=== PATIENT | female | born 1965 | race Caucasian/White ===

== ENCOUNTER 2017-01-19 21:20 | Emergency (ER) | payer BC ==
[2017-01-19] MEDS ORDERED: Albuterol/Ipratropium 3.0-0.5 MG/3 ML Neb Soln NEB ONE (21:24)
[2017-01-19] MEDS ORDERED: Sodium Chloride 0.9% 2.5 ML Syringe FLUSH PRN (21:24)
[2017-01-19] MEDS ORDERED: Aspirin 81 MG Tab.Chew PO ONE (21:24)
[2017-01-19] MEDS ORDERED: Sodium Chloride 0.9% 10 ML Syringe FLUSH PRN (21:24)
--- NOTE | 2017-01-19 21:28 | EDM.PDOC ---
ED HPI GENERAL MEDICAL PROBLEM - General Stated Complaint: PT HAS CHEST PAINS Time Seen by Provider: 01/19/17 21:22 - History of Present Illness INITIAL COMMENTS - FREE TEXT/NARRATIVE: HISTORY AND PHYSICAL: History of present illness: The patient is a 51-year-old female with hypertension eag-pzefvoe-eieyhvhgy diabetes long-standing history of tobacco use and a history of pneumonia, walking pneumonia, 2 years ago who follows with Dr. Story in our clinic and presents with 2-3 days of cough congestion nasal drainage and malaise which became worse last evening into today with shortness of breath. Patient states she has a nebulizer machine at home from her pneumonia 2 years ago and she gave herself a treatment and it did not seem to improve things. She has had nasal drainage when blowing her nose and feels like she's plugged up when she coughs it's mostly dry without any phlegm. The patient says she is more short of breath when she lies down and tries to go to sleep hence it was worse last evening and tonight. She only has chest discomfort occasionally and is more sensitive with her breathing and has not been consistent over the last several days or last 24 hours. She has no cardiac history that she is aware of it is never been diagnosed with COPD due to her smoking. She has no leg pain swelling and has not had any fevers. Patient denies alcohol and drug use to me Review of systems: As per history of present illness and below otherwise all systems reviewed and negative. Past medical history: As per history of present illness and as reviewed below otherwise noncontributory. Surgical history: As per history of present illness and as reviewed below otherwise noncontributory. Social history: No reported history of drug or alcohol abuse. Family history: As per history of present illness and as reviewed below otherwise noncontributory. Physical exam: General: Well-developed well-nourished female who is nontoxic and speaking clearly and easily in the ED without breathlessness. Vital signs have been reviewed by me. Patient has nasal quality to voice HEENT: Atraumatic, normocephalic, pupils reactive, negative for conjunctival pallor or scleral icterus, mucous membranes tacky, throat clear, neck supple, nontender, trachea midline. Lungs: Clear to auscultation with coarse breath sounds bilaterally and slightly diminished breath sounds in the bases right greater than left but no wheezing or stridor, no work of breathing,, breath sounds equal bilaterally, chest nontender. Heart: S1S2, regular rate and rhythm no overt murmurs. Abdomen: Soft, nondistended, nontender. Negative for masses or hepatosplenomegaly. Negative for costovertebral tenderness. Pelvis: Stable nontender. Genitourinary: Deferred. Rectal: Deferred. Extremities: Atraumatic, negative for cords or calf pain. Neurovascular unremarkable. No pedal edema or leg asymmetry Neuro: Awake, alert, oriented. Cranial nerves II through XII unremarkable. Cerebellum unremarkable. Motor and sensory unremarkable throughout. Exam nonfocal. Skin: Normal turgor no diaphoresis or rashes/lesions Diagnostics: EKG chest x-ray CBC CMP BNP lactic acid troponin influenza swab Therapeutics: IV O2 monitor aspirin duo neb Solu-Medrol Cefdnir Please note that the patient has a sinus rhythm with rate of 95 and a right bundle branch block on her EKG, when a research the computer I could not find any old EKGs for comparison I discussed with the patient and at bedside all testing results. We are going to treat her symptomatically with antibiotics for both bronchitis and sinusitis and I recommended that she use her nebulizer machine at home every 6 hours for the next several days along with prednisone treatment. I've advised her to follow-up with Dr. Story on Sunday or Sunday and reasons to return to the ED. She says that she would like a new nebulizer machine but she will speak with her provider about that. Advised her on reduction and/or quitting tobacco use and reduction of caffeine use. Impression: Bronchitis/sinusitis, dyspnea stable Definitive disposition and diagnosis as appropriate pending reevaluation and review of above. 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: Endocrine/Metabolic History: Reports: Diabetes, Type I Dermatologic History: Reports: Cellulitis - Infectious Disease History Infectious Disease History: Reports: Chicken Pox - Past Surgical History GI Surgical History: Reports: Cholecystectomy, Hernia Repair/Other, Other (See Below) Musculoskeletal Surgical History: Reports: Other (See Below) Social & Family History - Family History Cardiac: Reports: [place] Neurological: Reports: CVA Endocrine/Metabolic: Reports: Diabetes, Type I, Diabetes, type II - Tobacco Use Smoking Status *Q: Current Every Day Smoker Years of Tobacco use: 30 Packs/Tins Daily: 1 Used Tobacco, but Quit: No Second Hand Smoke Exposure: Yes - Alcohol Use Days Per Week of Alcohol Use: 0 - Recreational Drug Use Recreational Drug Use: No ED ROS GENERAL - Review of Systems Review Of Systems: ROS reveals no pertinent complaints other than HPI. ED EXAM, GENERAL - Physical Exam Exam: See Below (See dictation) Course - Vital Signs Last Recorded V/S: Last Vital Signs Temp 36.1 C 01/19/17 21:25 Pulse 88 01/19/17 23:12 Resp 18 01/19/17 23:12 BP 169/89 H 01/19/17 23:12 Pulse Ox 97 01/19/17 23:12 - Orders/Labs/Meds Orders: Active Orders 24 hr Category Date Time Status Cardiac Monitoring [RC] . DIRECTED Care 01/19/17 21:23 Active EKG Documentation Completion [RC] STAT Care 01/19/17 21:23 Active Oxygen Therapy, ED [RC] ASDIRECTED Care 01/19/17 21:23 Active Pulse Oximetry [RC] ASDIRECTED Care 01/19/17 21:23 Active RT Aerosol Therapy [RC] ASDIRECTED Care 01/19/17 21:24 Active Chest 2V [CR] Stat Exams 01/19/17 21:24 Taken Sodium Chloride 0.9% [Normal Saline] 500 ml Med 01/19/17 22:15 Active IV STAT Sodium Chloride 0.9% [Saline Flush] Med 01/19/17 21:24 Active 10 ml FLUSH ASDIRECTED PRN Sodium Chloride 0.9% [Saline Flush] Med 01/19/17 21:24 Active 2.5 ml FLUSH ASDIRECTED PRN Saline Lock Insert [OM.PC] Stat Oth 01/19/17 21:23 Ordered Medication Orders Sodium Chloride (Normal Saline) 500 mls @ 999 mls/hr IV STAT TREASURE Last Admin: 01/19/17 22:30 Dose: 999 mls/hr Sodium Chloride (Saline Flush) 10 ml FLUSH ASDIRECTED PRN PRN Reason: Keep Vein Open Last Admin: 01/19/17 22:33 Dose: 10 ml Sodium Chloride (Saline Flush) 2.5 ml FLUSH ASDIRECTED PRN PRN Reason: Keep Vein Open Last Admin: 01/19/17 22:33 Dose: 2.5 ml Labs: Laboratory Tests 01/19/17 01/19/17 01/19/17 Range/Units 21:32 21:32 21:32 WBC 9.50 (4.0-11.0) K/uL RBC 4.74 (4.30-5.90) M/uL Hgb 13.3 (12.0-16.0) g/dL Hct 39.4 (36.0-46.0) % MCV 83.1 (80.0-98.0) fL MCH 28.1 (27.0-32.0) pg MCHC 33.8 (31.0-37.0) g/dL RDW Std Deviation 45.0 (28.0-62.0) fl RDW Coeff of Becky 15 (11.0-15.0) % Plt Count 236 (150-400) K/uL MPV 10.80 (7.40-12.00) fL Neut % (Auto) 69.0 (48.0-80.0) % Lymph % (Auto) 24.9 (16.0-40.0) % [place] % (Auto) 4.7 (0.0-15.0) % Eos % (Auto) 1.2 (0.0-7.0) % Baso % (Auto) 0.2 (0.0-1.5) % Neut # (Auto) 6.6 H (1.4-5.7) K/uL Lymph # (Auto) 2.4 (0.6-2.4) K/uL [place] # (Auto) 0.5 (0.0-0.8) K/uL Eos # (Auto) 0.1 (0.0-0.7) K/uL Baso # (Auto) 0.0 (0.0-0.1) K/uL Nucleated RBC % 0.0 /100WBC Nucleated RBCs # 0 K/uL Lactate 1.8 (0.20-2.00) mmol/L Sodium 141 (136-146) mmol/L Potassium 3.7 (3.5-5.1) mmol/L Chloride 106 (98-110) mmol/L Carbon Dioxide 21 (21-31) mmol/L BUN 8 (6.0-23.0) mg/dL Creatinine 0.8 (0.6-1.5) mg/dL Est Cr Clr Drug Dosing 67.27 mL/min Estimated GFR (MDRD) > 60.0 ml/min Glucose 201 H (60-110) mg/dL Calcium 9.6 (8.8-10.8) mg/dL Total Bilirubin 0.3 (0.1-1.5) mg/dL AST 15 (5-40) IU/L ALT 23 (8-54) IU/L Alkaline Phosphatase 131 (40-150) Troponin I (0.0-0.29) NG/ML B-Natriuretic Peptide (<100) PG/ML Total Protein 7.4 (6.0-8.0) g/dL Albumin 3.9 (3.5-5.0) g/dL Globulin 3.5 (2.0-3.5) g/dL Albumin/Globulin Ratio 1.1 L (1.3-2.8) 01/19/17 01/19/17 Range/Units 21:32 21:32 WBC (4.0-11.0) K/uL RBC (4.30-5.90) M/uL Hgb (12.0-16.0) g/dL Hct (36.0-46.0) % MCV (80.0-98.0) fL MCH (27.0-32.0) pg MCHC (31.0-37.0) g/dL RDW Std Deviation (28.0-62.0) fl RDW Coeff of Becky (11.0-15.0) % Plt Count (150-400) K/uL MPV (7.40-12.00) fL Neut % (Auto) (48.0-80.0) % Lymph % (Auto) (16.0-40.0) % [place] % (Auto) (0.0-15.0) % Eos % (Auto) (0.0-7.0) % Baso % (Auto) (0.0-1.5) % Neut # (Auto) (1.4-5.7) K/uL Lymph # (Auto) (0.6-2.4) K/uL [place] # (Auto) (0.0-0.8) K/uL Eos # (Auto) (0.0-0.7) K/uL Baso # (Auto) (0.0-0.1) K/uL Nucleated RBC % /100WBC Nucleated RBCs # K/uL Lactate (0.20-2.00) mmol/L Sodium (136-146) mmol/L Potassium (3.5-5.1) mmol/L Chloride (98-110) mmol/L Carbon Dioxide (21-31) mmol/L BUN (6.0-23.0) mg/dL Creatinine (0.6-1.5) mg/dL Est Cr Clr Drug Dosing mL/min Estimated GFR (MDRD) ml/min Glucose (60-110) mg/dL Calcium (8.8-10.8) mg/dL Total Bilirubin (0.1-1.5) mg/dL AST (5-40) IU/L ALT (8-54) IU/L Alkaline Phosphatase (40-150) Troponin I < 0.10 (0.0-0.29) NG/ML B-Natriuretic Peptide 22 (<100) PG/ML Total Protein (6.0-8.0) g/dL Albumin (3.5-5.0) g/dL Globulin (2.0-3.5) g/dL Albumin/Globulin Ratio (1.3-2.8) Meds: Medications Generic Name Dose Route Start Last Admin Trade Name Freq PRN Reason Stop Dose Admin Sodium Chloride 500 mls @ 999 mls/hr 01/19/17 22:15 01/19/17 22:30 Normal Saline IV 999 mls/hr STAT TREASURE Administration Sodium Chloride 10 ml 01/19/17 21:24 01/19/17 22:33 Saline Flush FLUSH 10 ml ASDIRECTED PRN Administration Keep Vein Open Sodium Chloride 2.5 ml 01/19/17 21:24 01/19/17 22:33 Saline Flush FLUSH 2.5 ml ASDIRECTED PRN Administration Keep Vein Open Discontinued Medications Generic Name Dose Route Start Last Admin Trade Name Freq PRN Reason Stop Dose Admin Albuterol/Ipratropium 3 ml 01/19/17 21:24 01/19/17 21:34 Duoneb 3.0-0.5 Mg/3 Ml NEB 01/19/17 21:25 3 ml ONETIME ONE Administration Aspirin 324 mg 01/19/17 21:24 01/19/17 21:50 Aspirin PO 01/19/17 21:25 324 mg ONETIME ONE Administration Cefdinir 300 mg 01/19/17 23:37 Omnicef PO 01/19/17 23:38 ONETIME ONE Methylprednisolone Sodium Succinate 125 mg 01/19/17 21:52 01/19/17 22:34 Solu-Medrol IVPUSH 01/19/17 21:53 125 mg ONETIME ONE Administration Departure - Departure Time of Disposition: 23:40 Disposition: Home, Self-Care 01 Condition: Good Clinical Impression: Bronchitis Sinusitis Qualifiers: Sinusitis location: unspecified location Chronicity: acute Recurrence: not specified as recurrent Qualified Code(s): J01.90 - Acute sinusitis, unspecified Dyspnea Qualifiers: Dyspnea type: unspecified Qualified Code(s): R06.00 - Dyspnea, unspecified - Discharge Information Referrals: PCP,None [Primary Care Provider] - Additional Instructions: The following information is given to patients seen in the emergency department who are being discharged to home. This information is to outline your options for follow-up care. We provide all patients seen in our emergency department with a follow-up referral. The need for follow-up, as well as the timing and circumstances, are variable depending upon the specifics of your emergency department visit. If you don't have a primary care physician on staff, we will provide you with a referral. We always advise you to contact your personal physician following an emergency department visit to inform them of the circumstance of the visit and for follow-up with them and/or the need for any referrals to a consulting specialist. The emergency department will also refer you to a specialist when appropriate. This referral assures that you have the opportunity for followup care with a specialist. All of these measure are taken in an effort to provide you with optimal care, which includes your followup. Under all circumstances we always encourage you to contact your private physician who remains a resource for coordinating your care. When calling for followup care, please make the office aware that this follow-up is from your recent emergency room visit. If for any reason you are refused follow-up, please contact the [facility] emergency department at and ask to speak to the emergency department charge nurse. [facility] Primary care- Internal Medicine and Family [address] [address] Please use her nebulizer every 6 hours for the next 2 days and then every 6 hours as needed. Feel the prescriptions given to you today for antibiotics and prednisone and start them tomorrow. These try to reduce and/or quit smoking and also reduce caffeine use. Please contact her provider for follow-up on Sunday or Sunday of next week and return to ER as needed and as discussed - My Orders Last 24 Hours: My Active Orders 01/19/17 21:23 Cardiac Monitoring [RC] . DIRECTED EKG Documentation Completion [RC] STAT Oxygen Therapy, ED [RC] ASDIRECTED Pulse Oximetry [RC] ASDIRECTED Saline Lock Insert [OM.PC] Stat 01/19/17 21:24 RT Aerosol Therapy [RC] ASDIRECTED Chest 2V [CR] Stat Sodium Chloride 0.9% [Saline Flush] 10 ml FLUSH ASDIRECTED PRN Sodium Chloride 0.9% [Saline Flush] 2.5 ml FLUSH ASDIRECTED PRN 01/19/17 22:15 Sodium Chloride 0.9% [Normal Saline] 500 ml IV STAT - Assessment/Plan Last 24 Hours: My Active Orders 01/19/17 21:23 Cardiac Monitoring [RC] . DIRECTED EKG Documentation Completion [RC] STAT Oxygen Therapy, ED [RC] ASDIRECTED Pulse Oximetry [RC] ASDIRECTED Saline Lock Insert [OM.PC] Stat 01/19/17 21:24 RT Aerosol Therapy [RC] ASDIRECTED Chest 2V [CR] Stat Sodium Chloride 0.9% [Saline Flush] 10 ml FLUSH ASDIRECTED PRN Sodium Chloride 0.9% [Saline Flush] 2.5 ml FLUSH ASDIRECTED PRN 01/19/17 22:15 Sodium Chloride 0.9% [Normal Saline] 500 ml IV STAT
[2017-01-19] MEDS ORDERED: methylPREDNISolone Sodium Succinate 125 MG/2 ML SDV IVPUSH ONE (21:52)
[2017-01-19 22:05] LABS: CHLORIDE,CL 106 mmol/L (98-110); SODIUM,NA 141 mmol/L (136-146)
[2017-01-19] MEDS ORDERED: Sodium Chloride 0.9% 500 ML IV SCH (22:15)
[2017-01-19] MEDS ORDERED: Cefdinir 300 MG Cap PO ONE (23:37)
[2017-01-20 00:13] VITALS: BP 149/83
--- NOTE | 2017-01-22 10:17 | CR ---
EXAM DATE: 01/19/17 PATIENT'S AGE: 51 Patient: JOSY TEE Facility: [place], [place] Site . Site : [id number] Study: XRay Chest [id number]/13/2017 10:19:28 PM Ordering Physician: Doctor Briggs Final Report: INDICATION: chest tightness TECHNIQUE: Chest 2 views COMPARISON: March 28, 2016 FINDINGS: Cardiovascular and mediastinum: Heart size and vasculature are normal in caliber and appearance. Mediastinum is within normal limits. Lungs and pleural spaces: No focally consolidation. No sign of pleural effusion. No pneumothorax. Bones and soft tissues: No significant findings. IMPRESSION: No acute cardiopulmonary disease. Dictated by Benjamin Orozco MD @ 01/19/2017 10:55:52 PM Dictated by: Benjamin Orozco MD @ 01/19/2017 22:56:05 (Electronic Signature) Report Signed by Proxy. MTDSol
== END 2017-01-20 00:16 | disposition home or self-care (01) ==
LOC: MW.ED 21:20
DX: J40 Bronchitis, not specified as acute or chronic (principal); J01.90 Acute sinusitis, unspecified; E10.9 Type 1 diabetes mellitus without complications; F17.210 Nicotine dependence, cigarettes, uncomplicated; Z79.82 Long term (current) use of aspirin; Z79.899 Other long term (current) drug therapy; Z91.040 Latex allergy status; Z90.49 Acquired absence of other specified parts of digestive tract; Z98.890 Other specified postprocedural states; Z87.01 Personal history of pneumonia (recurrent)
CPT/HCPCS: 36415; 71020; 80053; 83605; 83880; 84484; 85025; 87804; 93005; 94640; 96361; 96374; 99285; A9270; J2930; J7040; 99283

== ENCOUNTER 2017-07-04 23:24 | Observation (INO) | payer BC ==
[2017-07-05 00:33] LABS: CHLORIDE,CL 100 mmol/L (98-107); SODIUM,NA 137 mmol/L (136-145)
--- NOTE | 2017-07-05 01:07 | EDM.PDOC ---
ED HPI GENERAL MEDICAL PROBLEM - General Chief Complaint: Upper Extremity Injury/Pain Stated Complaint: LT ARM NUMBNESS Time Seen by Provider: 07/05/17 01:02 - History of Present Illness INITIAL COMMENTS - FREE TEXT/NARRATIVE: HISTORY AND PHYSICAL: History of present illness: Patient is 52-year-old white female presents with a concern of left-sided chest pain and left arm numbness started just prior to arrival she denies shortness of breath palpitations nausea vomiting fever chills patient does have history of diabetes she is smoker and does have history of hypertension. Review of systems: As per history of present illness and below otherwise all systems reviewed and negative. Past medical history: As per history of present illness and as reviewed below otherwise noncontributory. Surgical history: As per history of present illness and as reviewed below otherwise noncontributory. Social history: No reported history of drug or alcohol abuse. Family history: As per history of present illness and as reviewed below otherwise noncontributory. Physical exam: HEENT: Atraumatic, normocephalic, pupils reactive, negative for conjunctival pallor or scleral icterus, mucous membranes moist, throat clear, neck supple, nontender, trachea midline. Lungs: Clear to auscultation, breath sounds equal bilaterally, chest nontender. Heart: S1S2, regular, negative for clicks, rubs, or JVD. Abdomen: Soft, nondistended, nontender. Negative for masses or hepatosplenomegaly. Negative for costovertebral tenderness. Pelvis: Stable nontender. Genitourinary: Deferred. Rectal: Deferred. Extremities: Atraumatic, negative for cords or calf pain. Neurovascular unremarkable. Neuro: Awake, alert, oriented. Cranial nerves II through XII unremarkable. Cerebellum unremarkable. Motor and sensory unremarkable throughout. Exam nonfocal. Diagnostics: CBC CMP troponin PT/INR chest x-ray EKG CT brain Therapeutics: IV O2 monitor aspirin 324 mg by mouth Impression: #1 chest pain #2 paresthesia #3 history diabetes #4 history of hypertension efinitive disposition and diagnosis as appropriate pending reevaluation and review of above. left arm Pain Score (Numeric/FACES): 7 - Related Data Allergies Allergy/AdvReac Type Severity Reaction Status Date / Time latex Allergy Unknown Rash Verified 07/04/17 23:29 Home Meds: Home Meds metFORMIN [Glucophage XR] 1 gm PO BID 11/05/13 [History] glipiZIDE [Glucotrol XL] 10 mg PO BID 10/23/15 [History] Aspirin 81 mg PO DAILY 01/19/17 [History] Losartan [Cozaar] 1 tab PO DAILY 01/19/17 [History] Omeprazole Magnesium [Prilosec Otc] 20 mg PO DAILY 01/19/17 [History] atorvaSTATin [Lipitor] 40 mg PO DAILY 01/19/17 [History] Past Medical History HEENT History: Reports: None Cardiovascular History: Reports: High Cholesterol, Hypertension Respiratory History: Reports: None Gastrointestinal History: Reports: None Genitourinary History: Reports: None 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 History: Reports: None Neurological History: Reports: None Psychiatric History: Reports: None Endocrine/Metabolic History: Reports: Diabetes, Type II Hematologic History: Reports: None Oncologic (Cancer) History: Reports: None Dermatologic History: Reports: Cellulitis - Infectious Disease History Infectious Disease History: Reports: Chicken Pox - Past Surgical History GI Surgical History: Reports: Cholecystectomy, Hernia Repair/Other, Other (See Below) Female Surgical History: Reports: Hysterectomy Musculoskeletal Surgical History: Reports: Other (See Below) Social & Family History - Family History Family Medical History: Noncontributory Cardiac: Reports: [place] Neurological: Reports: CVA Endocrine/Metabolic: Reports: Diabetes, Type I, Diabetes, type II - Tobacco Use Smoking Status *Q: Current Every Day Smoker Years of Tobacco use: 38 Packs/Tins Daily: 1 Used Tobacco, but Quit: No Second Hand Smoke Exposure: Yes - Caffeine Use Caffeine Use: Reports: Soda, Tea - Alcohol Use Days Per Week of Alcohol Use: 0 - Recreational Drug Use Recreational Drug Use: No Review of Systems - Review of Systems Review Of Systems: ROS reveals no pertinent complaints other than HPI. ED EXAM, GENERAL - Physical Exam Exam: See Below (See dictation) Course - Vital Signs Text/Narrative:: I discussed with patient transfer in light of her symptoms and risk factors patient discussed with family and opted for admission for observation here she understands risks benefits. Last Recorded V/S: Last Vital Signs Temp 36.6 C 07/04/17 23:30 Pulse 109 H 07/05/17 00:00 Resp 16 07/05/17 00:00 BP 167/81 H 07/05/17 00:00 Pulse Ox 94 L 07/05/17 00:00 - Orders/Labs/Meds Orders: Active Orders 24 hr Category Date Time Status EKG 12 Lead [EKG Documentation Completion] [RC] STAT Care 07/04/17 23:54 Active Chest 1V Frontal [CR] Stat Exams 07/04/17 23:32 Taken Head wo Cont [CT] Stat Exams 07/04/17 23:32 Taken Labs: Laboratory Tests 07/04/17 07/04/17 Range/Units 23:40 23:40 WBC 12.35 H (4.0-11.0) K/uL RBC 4.65 (4.30-5.90) M/uL Hgb 12.3 (12.0-16.0) g/dL Hct 37.0 (36.0-46.0) % MCV 79.6 L (80.0-98.0) fL MCH 26.5 L (27.0-32.0) pg MCHC 33.2 (31.0-37.0) g/dL RDW Std Deviation 44.1 (28.0-62.0) fl RDW Coeff of Becky 15 (11.0-15.0) % Plt Count 253 (150-400) K/uL MPV 10.80 (7.40-12.00) fL Neut % (Auto) 76.0 (48.0-80.0) % Lymph % (Auto) 17.3 (16.0-40.0) % [place] % (Auto) 4.8 (0.0-15.0) % Eos % (Auto) 1.8 (0.0-7.0) % Baso % (Auto) 0.1 (0.0-1.5) % Neut # (Auto) 9.4 H (1.4-5.7) K/uL Lymph # (Auto) 2.1 (0.6-2.4) K/uL [place] # (Auto) 0.6 (0.0-0.8) K/uL Eos # (Auto) 0.2 (0.0-0.7) K/uL Baso # (Auto) 0.0 (0.0-0.1) K/uL Nucleated RBC % 0.0 /100WBC Nucleated RBCs # 0 K/uL Sodium 137 (136-145) mmol/L Potassium 3.5 (3.5-5.1) mmol/L Chloride 100 (98-107) mmol/L Carbon Dioxide 28.3 (21.0-32.0) mmol/L BUN 9 (7.0-18.0) mg/dL Creatinine 1.0 (0.6-1.0) mg/dL Est Cr Clr Drug Dosing 53.82 mL/min Estimated GFR (MDRD) 58.0 ml/min Glucose 256 H (74-106) mg/dL Calcium 9.7 (8.5-10.1) mg/dL Total Bilirubin 0.4 (0.2-1.0) mg/dL AST 14 L (15-37) IU/L ALT 15 (14-63) IU/L Alkaline Phosphatase 117 H (46-116) U/L CK-MB (CK-2) 0.6 (0-3.6) ng/mL Troponin I < 0.050 (0.000-0.056) ng/mL Total Protein 7.7 (6.4-8.2) g/dL Albumin 3.4 (3.4-5.0) g/dL Globulin 4.3 H (2.0-3.5) g/dL Albumin/Globulin Ratio 0.8 L (1.3-2.8) Meds: Medications Discontinued Medications Generic Name Dose Route Start Last Admin Trade Name Freq PRN Reason Stop Dose Admin Aspirin 324 mg 07/05/17 01:10 Aspirin PO 07/05/17 01:11 ONETIME ONE Nitroglycerin 1 gm 07/05/17 01:10 Nitro-Bid 2% TOP 07/05/17 01:11 ONETIME ONE Departure - Departure Time of Disposition: 01:07 Disposition: Refer to Observation Condition: Good Clinical Impression: Chest pain, Paresthesia - Discharge Information Referrals: PCP,None [Primary Care Provider] - Forms: ED Department Discharge - My Orders Last 24 Hours: My Active Orders 07/04/17 23:32 Chest 1V Frontal [CR] Stat Head wo Cont [CT] Stat 07/04/17 23:54 EKG 12 Lead [EKG Documentation Completion] [RC] STAT - Assessment/Plan Last 24 Hours: My Active Orders 07/04/17 23:32 Chest 1V Frontal [CR] Stat Head wo Cont [CT] Stat 03/28/18 23:54 EKG 12 Lead [EKG Documentation Completion] [RC] STAT
[2017-07-05] MEDS ORDERED: Aspirin 81 MG Tab.Chew PO ONE (01:10)
[2017-07-05] MEDS ORDERED: Nitroglycerin 2% Oint 1 GM UD Packet TOP ONE (01:10)
[2017-07-05] MEDS ORDERED: Morphine 4 MG/ML Syringe SUBCUT PRN (02:43)
[2017-07-05] MEDS ORDERED: Acetaminophen 325 MG Tab PO PRN (02:45)
--- NOTE | 2017-07-05 09:06 | PCM.HP ---
H&P History of Present Illness - General Date of Service: 07/05/17 Admit Problem/Dx: Admission Diagnosis/Problem Admission Diagnosis/Problem Chest pain Source of Information: Patient - History of Present Illness Initial Comments - Free Text/Narative: Discharge Summary Date of admission: 07/04/2018 Date of discharge: 06/06/2017 Admitting diagnosis: #1. Left-sided chest pain acute coronary syndrome rule out #2. Numbness of left arm #3. #4. #5. Discharge diagnoses: #1. Chest pain now resolved ACS ruled out, troponins negative 3 #2. Possible underlying respiratory issue, patient placed on Advair and albuterol #3. #4. #5. Consultations: None Procedures: None Hospitalization course: Patient was admitted overnight secondary to acute chest pain rule out, troponins were negative 3 chest pain had resolved numbness of left arm had resolved. Patient did have some wheezing on auscultation that the patient says was not present prior to having a viral infection a few days earlier, patient says that she does have albuterol and has not been using it as much prior to this admission. Due to the increasing use of the albuterol the decision was made to send the patient home on Advair as this may help in regards to the patient's respiratory inflammation. Patient is to have pulmonary function testing once symptoms have improved, patient is to have a cardiac stress test and an outpatient setting. History of present illness: Patient presents to the ER with left-sided chest pain with left arm numbness, she denied having any shortness of breath, denied having any nausea, vomiting, signs of fevers or chills that would indicate possibly an infectious process. Due to the history of diabetes and possible risk factors the decision was made to admit the patient for acute coronary syndrome rule out. left arm Pain Score (Numeric/FACES): 7 Left Chest Pain Score (Numeric/FACES): 2 - Related Data Allergies/Adverse Reactions: Allergies Allergy/AdvReac Type Severity Reaction Status Date / Time latex Allergy Unknown Rash Verified 07/04/17 23:29 Home Medications: Home Meds metFORMIN [Glucophage XR] 1,000 mg PO BID 11/05/13 [History] glipiZIDE [Glucotrol XL] 10 mg PO BID 10/23/15 [History] Aspirin 81 mg PO BEDTIME 01/19/17 [History] Losartan [Cozaar] 1 tab PO BEDTIME 01/19/17 [History] Omeprazole Magnesium [Prilosec Otc] 20 mg PO DAILY 01/19/17 [History] atorvaSTATin [Lipitor] 40 mg PO BEDTIME 01/19/17 [History] Albuterol [Proair HFA] 2 puff INH Q4HR PRN 30 Days #1 inhaler 07/05/17 [Rx] Fluticasone/Salmeterol [Advair 250-50] 1 puff INH BID 30 Days #1 diskus [Rx] Past Medical History HEENT History: Reports: None Cardiovascular History: Reports: High Cholesterol, Hypertension Respiratory History: Reports: None Gastrointestinal History: Reports: None Genitourinary History: Reports: None 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: Musculoskeletal History: Reports: None Neurological History: Reports: None Psychiatric History: Reports: None Endocrine/Metabolic History: Reports: Diabetes, Type II Hematologic History: Reports: None Oncologic (Cancer) History: Reports: None Dermatologic History: Reports: Cellulitis - Infectious Disease History Infectious Disease History: Reports: Chicken Pox - Past Surgical History GI Surgical History: Reports: Cholecystectomy, Hernia Repair/Other Female Surgical History: Reports: Hysterectomy Musculoskeletal Surgical History: Reports: Other (See Below) Social & Family History - Family History Family Medical History: Noncontributory Cardiac: Reports: [place] Neurological: Reports: CVA Endocrine/Metabolic: Reports: Diabetes, Type I, Diabetes, type II - Tobacco Use Smoking Status *Q: Current Every Day Smoker Years of Tobacco use: 35 Packs/Tins Daily: 1 Used Tobacco, but Quit: No Second Hand Smoke Exposure: No - Caffeine Use Caffeine Use: Reports: Tea - Alcohol Use Days Per Week of Alcohol Use: 0 - Recreational Drug Use Recreational Drug Use: No H&P Review of Systems - Review of Systems: Review Of Systems: ROS reveals no pertinent complaints other than HPI. Exam - Exam Exam: See Below - Vital Signs Vital Signs: Last Vital Signs Temp 36.3 C 07/05/17 08:00 Pulse 89 07/05/17 08:00 Resp 20 07/05/17 08:00 BP 138/65 07/05/17 08:00 Pulse Ox 91 L 07/05/17 08:00 Weight: 83.9 kg - Exam Quality Assessment: Supplemental Oxygen General: Alert, Oriented, Cooperative Lungs: Normal Respiratory Effort, Wheezing Cardiovascular: Regular Rate, Regular Rhythm GI/Abdominal Exam: Normal Bowel Sounds, Soft Extremities: Normal Inspection, Normal Range of Motion - Patient Data Lab Results Last 24 hrs: Laboratory Results - last 24 hr 07/04/17 07/04/17 07/05/17 Range/Units 23:40 23:40 05:25 WBC 12.35 H (4.0-11.0) K/uL RBC 4.65 (4.30-5.90) M/uL Hgb 12.3 (12.0-16.0) g/dL Hct 37.0 (36.0-46.0) % MCV 79.6 L (80.0-98.0) fL MCH 26.5 L (27.0-32.0) pg MCHC 33.2 (31.0-37.0) g/dL RDW Std Deviation 44.1 (28.0-62.0) fl RDW Coeff of Becky 15 (11.0-15.0) % Plt Count 253 (150-400) K/uL MPV 10.80 (7.40-12.00) fL Neut % (Auto) 76.0 (48.0-80.0) % Lymph % (Auto) 17.3 (16.0-40.0) % [place] % (Auto) 4.8 (0.0-15.0) % Eos % (Auto) 1.8 (0.0-7.0) % Baso % (Auto) 0.1 (0.0-1.5) % Neut # (Auto) 9.4 H (1.4-5.7) K/uL Lymph # (Auto) 2.1 (0.6-2.4) K/uL [place] # (Auto) 0.6 (0.0-0.8) K/uL Eos # (Auto) 0.2 (0.0-0.7) K/uL Baso # (Auto) 0.0 (0.0-0.1) K/uL Nucleated RBC % 0.0 /100WBC Nucleated RBCs # 0 K/uL Sodium 137 (136-145) mmol/L Potassium 3.5 (3.5-5.1) mmol/L Chloride 100 (98-107) mmol/L Carbon Dioxide 28.3 (21.0-32.0) mmol/L BUN 9 (7.0-18.0) mg/dL Creatinine 1.0 (0.6-1.0) mg/dL Est Cr Clr Drug Dosing 53.82 mL/min Estimated GFR (MDRD) 58.0 ml/min Glucose 256 H (74-106) mg/dL Calcium 9.7 (8.5-10.1) mg/dL Total Bilirubin 0.4 (0.2-1.0) mg/dL AST 14 L (15-37) IU/L ALT 15 (14-63) IU/L Alkaline Phosphatase 117 H (46-116) U/L CK-MB (CK-2) 0.6 (0-3.6) ng/mL Troponin I < 0.050 < 0.050 (0.000-0.056) ng/mL Total Protein 7.7 (6.4-8.2) g/dL Albumin 3.4 (3.4-5.0) g/dL Globulin 4.3 H (2.0-3.5) g/dL Albumin/Globulin Ratio 0.8 L (1.3-2.8) Result Diagrams: 07/04/17 23:40 07/04/17 23:40 Problem List Initiated/Reviewed/Updated: Yes Orders Last 24hrs: Active Orders 24 hr Category Date Time Status Patient Status [ADT] Stat ADT 07/05/17 01:20 Active EKG 12 Lead [EKG Documentation Completion] [RC] STAT Care 07/04/17 23:54 Active Telemetry Monitoring [Cardiac Monitoring] [RC] Q8H Care 07/05/17 03:42 Active Heart Healthy Diet [DIET] Diet 07/05/17 Lunch Active Chest 1V Frontal [CR] Stat Exams 07/04/17 23:32 Taken Head wo Cont [CT] Stat Exams 07/04/17 23:32 Taken TROPONIN I [CHEM] Routine Lab 07/05/17 11:40 Ordered Acetaminophen [Tylenol] Med 07/05/17 02:45 Active 650 mg PO Q4H PRN Morphine Med 07/05/17 02:43 Active 2 mg SUBCUT Q6H PRN Medication Orders Acetaminophen (Tylenol) 650 mg PO Q4H PRN PRN Reason: Headache Morphine Sulfate (Morphine) 2 mg SUBCUT Q6H PRN PRN Reason: Pain Assessment/Plan Comment:: 52-year-old female presenting with acute chest pain and numbness in the ER requiring acute coronary syndrome rule out. Troponin 3, cardiac monitoring, CBC CMP in the a.m. if all negative patient shall be discharged with outpatient cardiac stress test. Anticipated length of stay less than 2 midnights.
[2017-07-05] MEDS ORDERED: Albuterol/Ipratropium 3.0-0.5 MG/3 ML Neb Soln NEB ONE (09:34)
--- NOTE | 2017-07-05 09:49 | CR ---
EXAM DATE: 07/05/17 PATIENT'S AGE: 51 Patient: JOSY TEE Facility: Home, [place] Site . Site : 1965 Study: XRay Chest [id number]/28/[id number] 11:55:41 PM Ordering Physician: Doctor Briggs Final Report: INDICATION: Left-sided numbness. Smoking history. TECHNIQUE: Chest 1 views COMPARISON: January 19, 2017 FINDINGS: Cardiovascular and mediastinum: Heart size and vasculature are normal in caliber and appearance. Lungs and pleural spaces: Lungs are clear. No sign of infiltrate or mass. No sign of pleural effusion. No pneumothorax. Bones and soft tissues: No significant findings. IMPRESSION: No acute findings and no significant changes from the prior exam. Dictated by Familia Guzman MD @ Jul 05 2017 12:04AM (Electronic Signature) Report Signed by Proxy. BETSY
--- NOTE | 2017-07-05 09:50 | CT ---
EXAM DATE: 07/05/17 PATIENT'S AGE: 51 Patient: JOSY TEE Facility: [place], [place] Site . Site : 1965 Study: CT Head [id number]/28/[id number] 11:57:08 PM Ordering Physician: Doctor Briggs Final Report: INDICATION: Left-sided numbness. TECHNIQUE: Standard noncontrast head CT performed. FINDINGS: There is no intracranial hemorrhage or fluid collection. The king-white matter differentiation is maintained. The ventricles are of normal morphology. The basal cisterns are clear. Calcified plaque is noted around both carotid siphons. The visualized orbits, sinuses and mastoids are unremarkable. The calvarium is intact. IMPRESSION: No acute intracranial abnormality. Please note that all CT scans at this facility use dose modulation, iterative reconstruction, and/or weight-based dosing when appropriate to reduce radiation dose to as low as reasonably achievable. Dictated by Robbi Mcmahon MD @ Jul 05 2017 12:00AM (Electronic Signature) Report Signed by Proxy. MTDD
[2017-07-05] MEDS ORDERED: Albuterol/Ipratropium 3.0-0.5 MG/3 ML Neb Soln NEB SCH (10:00)
[2017-07-05] MEDS ORDERED: Fluticasone/Salmeterol 250-50 MCG Inhalation Powder 14/Diskus INH SCH (10:15)
[2017-07-05 12:07] VITALS: BP 151/64
== END 2017-07-05 14:30 | disposition home or self-care (01) ==
LOC: MW.ED 23:24 → MW.MS 07-05 01:20
PROVIDERS: ADMIT Family Medicine; ATTEND Family Medicine
DX: R07.9 Chest pain, unspecified (principal); E78.00 Pure hypercholesterolemia, unspecified; I10 Essential (primary) hypertension; E11.9 Type 2 diabetes mellitus without complications; F17.210 Nicotine dependence, cigarettes, uncomplicated; Z91.040 Latex allergy status; Z79.84 Long term (current) use of oral hypoglycemic drugs; Z79.82 Long term (current) use of aspirin; Z79.899 Other long term (current) drug therapy; Z90.49 Acquired absence of other specified parts of digestive tract; Z90.710 Acquired absence of both cervix and uterus
CPT/HCPCS: 36415; 70450; 71045; 80053; 82553; 83036; 84484; 85025; 93005; 94640; 94664; 99284; A9270; 99283; G0378

== ENCOUNTER 2018-09-08 19:56 | Emergency (ER) | payer BC ==
[2018-09-08] MEDS ORDERED: Ondansetron 4 MG Tab.DIS PO ONE (19:58)
--- NOTE | 2018-09-08 20:05 | EDM.PDOC ---
ED HPI GENERAL MEDICAL PROBLEM - General Stated Complaint: LOWER BACK PAIN/NAUSEA Time Seen by Provider: 09/08/18 19:58 Source of Information: Reports: Patient History Limitations: Reports: No Limitations - History of Present Illness INITIAL COMMENTS - FREE TEXT/NARRATIVE: HISTORY AND PHYSICAL: History of present illness: Patient is a 53-year-old female who presents to the emergency room today with complaints of low back pain 4 days. She states this has progressively gotten worse over the past several days and she does note that her urine is dark orange /pink in color. She denies any injury, trauma or falls. Believes the discomfort is related to a urinary tract infection. She reports she does have narcotic pain medication at home and this has not helped alleviate her discomfort. Patient does have a history of type 2 diabetes and hypertension. Review of systems: As per history of present illness and below otherwise all systems reviewed and negative. Past medical history: As per history of present illness and as reviewed below otherwise noncontributory. Surgical history: As per history of present illness and as reviewed below otherwise noncontributory. Social history: See social history for further information Family history: As per history of present illness and as reviewed below otherwise noncontributory. Physical exam: General: Well-developed and well-nourished 53-year-old female. Alert and oriented. Nontoxic appearing and in no acute distress. HEENT: Atraumatic, normocephalic, pupils equal and reactive bilaterally, negative for conjunctival pallor or scleral icterus, mucous membranes moist, trachea midline. No drooling or trismus noted. No meningeal signs. No hot potato voice noted. Lungs: Clear to auscultation, breath sounds equal bilaterally, chest nontender. Heart: S1S2, regular rate and rhythm without overt murmur Abdomen: Soft, nondistended, nontender. Negative for masses. Negative for costovertebral tenderness. Pelvis: Stable nontender. Skin: Intact, warm, dry. No lesions or rashes noted. Extremities: Atraumatic, moves all extremities per self without difficulty or deficits, negative for cords or calf pain. Neurovascular unremarkable. Back: No pinpoint vertebral tenderness upon palpation. No crepitus, step-offs or obvious deformities. Patient is ambulatory without any difficulty or deficits. Denies any numbness, tingling or saddle paresthesia. Neuro: Awake, alert, oriented. Cranial nerves II through XII unremarkable. Cerebellum unremarkable. Motor and sensory unremarkable throughout. Exam nonfocal. Notes: The initial urinalysis is negative. Patient would like to move forward with lab work and imaging. She is concerned she has a kidney stone. She refuses an x-ray at this time. Stating that she did not have any injury trauma or falls. Lab work is unremarkable. CT shows no acute findings. Vital signs remain stable. Supportive care measures were reviewed and discussed. Voices understanding and is agreeable to plan of care. Denies any further questions or concerns at this time. Diagnostics: UA, CBC, CMP, CT abdomen and pelvis Therapeutics: Zofran Prescription: Flexeril (#20) Impression: Lumbar back pain Plan: 1. Please do not drive for the remainder of the day as the medications he received to cause drowsiness. 2. Tylenol and/or ibuprofen as needed for pain management. 3. Follow-up with your primary care provider as we discussed. Return to the ED as needed and as discussed. Definitive disposition and diagnosis as appropriate pending reevaluation and review of above. Back Pain Score (Numeric/FACES): 9 - Related Data Allergies Allergy/AdvReac Type Severity Reaction Status Date / Time latex Allergy Unknown Rash Verified 09/08/18 20:05 Home Meds: Home Meds metFORMIN [Glucophage XR] 1,000 mg PO BID 11/05/13 [History] glipiZIDE [Glucotrol XL] 10 mg PO BID 10/23/15 [History] Aspirin 81 mg PO BEDTIME 01/19/17 [History] Losartan [Cozaar] 1 tab PO BEDTIME 01/19/17 [History] Omeprazole Magnesium [Prilosec Otc] 20 mg PO DAILY 01/19/17 [History] atorvaSTATin [Lipitor] 40 mg PO BEDTIME 01/19/17 [History] Albuterol [Proair HFA] 2 puff INH Q4HR PRN 30 Days #1 inhaler 07/05/17 [Rx] Fluticasone/Salmeterol [Advair 250-50] 1 puff INH BID 30 Days #1 diskus [Rx] Empagliflozin [Jardiance] 10 mg PO DAILY 09/08/18 [History] Past Medical History HEENT History: Reports: None Cardiovascular History: Reports: High Cholesterol, Hypertension Respiratory History: Reports: None Gastrointestinal History: Reports: None Genitourinary History: Reports: None 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: Musculoskeletal History: Reports: None Neurological History: Reports: None Psychiatric History: Reports: None Endocrine/Metabolic History: Reports: Diabetes, Type II Hematologic History: Reports: None Oncologic (Cancer) History: Reports: None Dermatologic History: Reports: Cellulitis - Infectious Disease History Infectious Disease History: Reports: Chicken Pox - Past Surgical History GI Surgical History: Reports: Cholecystectomy, Hernia Repair/Other Female Surgical History: Reports: Hysterectomy Musculoskeletal Surgical History: Reports: Other (See Below) Social & Family History - Family History Family Medical History: Noncontributory Cardiac: Reports: [place] Neurological: Reports: CVA Endocrine/Metabolic: Reports: Diabetes, Type I, Diabetes, type II - Caffeine Use Caffeine Use: Reports: Tea ED ROS GENERAL - Review of Systems Review Of Systems: ROS reveals no pertinent complaints other than HPI. ED EXAM, GENERAL - Physical Exam Exam: See Below (See dictation) Course - Vital Signs Last Recorded V/S: Last Vital Signs Temp 97.5 F 09/08/18 20:06 Pulse 106 H 09/08/18 20:06 Resp 20 09/08/18 20:06 BP 152/80 H 09/08/18 20:06 Pulse Ox 92 L 09/08/18 20:06 - Orders/Labs/Meds Labs: Laboratory Tests 09/08/18 09/08/18 09/08/18 Range/Units 20:05 20:50 20:50 WBC 11.11 H (4.0-11.0) K/uL RBC 5.03 (4.30-5.90) M/uL Hgb 12.2 (12.0-16.0) g/dL Hct 39.0 (36.0-46.0) % MCV 77.5 L (80.0-98.0) fL MCH 24.3 L (27.0-32.0) pg MCHC 31.3 (31.0-37.0) g/dL RDW Std Deviation 45.2 (28.0-62.0) fl RDW Coeff of Becky 16 H (11.0-15.0) % Plt Count 266 (150-400) K/uL MPV 11.40 (7.40-12.00) fL Neut % (Auto) 68.4 (48.0-80.0) % Lymph % (Auto) 24.4 (16.0-40.0) % [place] % (Auto) 5.6 (0.0-15.0) % Eos % (Auto) 1.5 (0.0-7.0) % Baso % (Auto) 0.1 (0.0-1.5) % Neut # (Auto) 7.6 H (1.4-5.7) K/uL Lymph # (Auto) 2.7 H (0.6-2.4) K/uL [place] # (Auto) 0.6 (0.0-0.8) K/uL Eos # (Auto) 0.2 (0.0-0.7) K/uL Baso # (Auto) 0.0 (0.0-0.1) K/uL Nucleated RBC % 0.0 /100WBC Nucleated RBCs # 0 K/uL Sodium 140 (136-145) mmol/L Potassium 3.6 (3.5-5.1) mmol/L Chloride 104 (98-107) mmol/L Carbon Dioxide 28.7 (21.0-32.0) mmol/L BUN 10 (7.0-18.0) mg/dL Creatinine 0.9 (0.6-1.0) mg/dL Est Cr Clr Drug Dosing 58.42 mL/min Estimated GFR (MDRD) > 60.0 ml/min Glucose 241 H (74-106) mg/dL Calcium 9.6 (8.5-10.1) mg/dL Total Bilirubin 0.3 (0.2-1.0) mg/dL AST 16 (15-37) IU/L ALT 24 (14-63) IU/L Alkaline Phosphatase 106 (46-116) U/L Total Protein 7.4 (6.4-8.2) g/dL Albumin 3.6 (3.4-5.0) g/dL Globulin 3.8 (2.6-4.0) g/dL Albumin/Globulin Ratio 0.9 (0.9-1.6) Urine Color YELLOW Urine Appearance CLEAR Urine pH 5.5 (5.0-8.0) Ur Specific [place] <= 1.005 (1.001-1.035) Urine Protein NEGATIVE (NEGATIVE) mg/dL Urine Glucose (UA) 100 H (NEGATIVE) mg/dL Urine Ketones NEGATIVE (NEGATIVE) mg/dL Urine Occult Blood NEGATIVE (NEGATIVE) Urine Nitrite NEGATIVE (NEGATIVE) Urine Bilirubin NEGATIVE (NEGATIVE) Urine Urobilinogen 0.2 (<2.0) EU/dL Ur Leukocyte Esterase NEGATIVE (NEGATIVE) Meds: Medications Discontinued Medications Generic Name Dose Route Start Last Admin Trade Name Freq PRN Reason Stop Dose Admin Hydromorphone HCl 1 mg 09/08/18 20:41 09/08/18 20:53 Dilaudid IVPUSH 09/08/18 20:42 1 mg ONETIME ONE Administration Sodium Chloride 1,000 mls @ 999 mls/hr 09/08/18 20:42 09/08/18 20:58 Normal Saline IV 09/08/18 21:42 999 mls/hr STAT ONE Administration Ondansetron HCl 4 mg 09/08/18 19:58 09/08/18 20:11 Zofran Odt PO 09/08/18 19:59 4 mg ONETIME ONE Administration Departure - Departure Time of Disposition: 21:42 Disposition: Home, Self-Care 01 Clinical Impression: Lumbar back pain - Discharge Information Instructions: Acute Back Pain, Adult Referrals: Karthikeyan Cullen MD [Primary Care Provider] - Additional Instructions: The following information is given to patients seen in the emergency department who are being discharged to home. This information is to outline your options for follow-up care. We provide all patients seen in our emergency department with a follow-up referral. The need for follow-up, as well as the timing and circumstances, are variable depending upon the specifics of your emergency department visit. If you don't have a primary care physician on staff, we will provide you with a referral. We always advise you to contact your personal physician following an emergency department visit to inform them of the circumstance of the visit and for follow-up with them and/or the need for any referrals to a consulting specialist. The emergency department will also refer you to a specialist when appropriate. This referral assures that you have the opportunity for follow-up care with a specialist. All of these measure are taken in an effort to provide you with optimal care, which includes your follow-up. Under all circumstances we always encourage you to contact your private physician who remains a resource for coordinating your care. When calling for follow-up care, please make the office aware that this follow-up is from your recent emergency room visit. If for any reason you are refused follow-up, please contact the [facility] at and asked to speak to the emergency department charge nurse. [facility] [address] [place] [address] [facility] [address] [place] [id number] [address] for the remainder of the day as the medications he received to cause drowsiness. 2. Tylenol and/or ibuprofen as needed for pain management. Apply gentle heat and stretching to the area. 3. Follow-up with your primary care provider as we discussed. Return to the ED as needed and as discussed.
[2018-09-08] MEDS ORDERED: HYDROmorphone 1 MG/ML Syringe IVPUSH ONE (20:41)
[2018-09-08] MEDS ORDERED: Sodium Chloride 0.9% 1,000 ML IV ONE (20:42)
[2018-09-08 21:21] LABS: CHLORIDE,CL 104 mmol/L (98-107); SODIUM,NA 140 mmol/L (136-145)
--- NOTE | 2018-09-08 21:40 | CT ---
INDICATION: Abdominal pain radiating to the back TECHNIQUE: CT abdomen and pelvis without contrast. COMPARISON: January 07, 2018 FINDINGS: Lower chest: Faint opacity in the left lower lobe. Liver: Calcifications along the right lateral hepatic capsule. There is pneumobilia. Spleen: Unremarkable. Pancreas: Unremarkable. Gallbladder and bile ducts: S/p cholecystectomy. Adrenal glands: 2.5 x 1.3 cm left adrenal gland nodule is measures 23 Hounsfield units in density. 1.0 cm x 6 mm right adrenal gland nodule. 4 mm right adrenal gland myelolipoma. Kidneys: Unremarkable. No kidney or ureteral stones and no hydronephrosis. GI tract: Unremarkable. Appendix is normal. Vascular structures: Moderate atherosclerotic disease. Lymph nodes: Unremarkable. Miscellaneous: Status post ventral herniorrhaphy with mesh placement. There are a few fat containing ventral hernias cephalad to the ventral herniorrhaphy. No free air or significant free fluid. Pelvic Organs: Status post hysterectomy. Bones: Unremarkable for age. IMPRESSION: No etiology seen to explain symptoms. Faint opacity in the left lower lobe may represent atelectasis or infection. Status post cholecystectomy with stable pneumobilia. Bilateral indeterminate adrenal gland nodules. Consider adrenal CT for further characterization. There is also a right adrenal gland myelolipoma. Status post hysterectomy. Please note that all CT scans at this facility use dose modulation, iterative reconstruction, and/or weight-based dosing when appropriate to reduce radiation dose to as low as reasonably achievable. Dictated by Janae Salazar MD @ Sep 08 2018 9:28PM Signed by Dr. Janae Salazar @ Sep 08 2018 9:38PM
[2018-09-08 22:07] VITALS: BP 157/74
== END 2018-09-08 21:55 | disposition home or self-care (01) ==
LOC: MW.ED 19:56
DX: M54.5 Low back pain (principal); I10 Essential (primary) hypertension; E11.9 Type 2 diabetes mellitus without complications; Z91.040 Latex allergy status; Z79.82 Long term (current) use of aspirin; Z79.84 Long term (current) use of oral hypoglycemic drugs; Z79.899 Other long term (current) drug therapy; Z90.49 Acquired absence of other specified parts of digestive tract; Z90.710 Acquired absence of both cervix and uterus
CPT/HCPCS: 36415; 74176; 80053; 81003; 85025; 96361; 96374; 99284; A9270; J1170; J7040

== ENCOUNTER 2020-01-04 18:02 | Emergency (ER) | payer BC, OTHER ==
--- NOTE | 2020-01-04 18:14 | EDM.PDOC ---
ED HPI GENERAL MEDICAL PROBLEM - General Chief Complaint: Respiratory Problem Stated Complaint: CHEST CONGESTION Time Seen by Provider: 01/04/20 18:06 Source of Information: Reports: Patient History Limitations: Reports: No Limitations - History of Present Illness INITIAL COMMENTS - FREE TEXT/NARRATIVE: HISTORY AND PHYSICAL: History of present illness: Patient is a 54-year-old female who presents to the emergency room with complaints of chest pain, shortness of breath, sore throat and diarrhea over the past 3 days. Patient is concerned she may have pneumonia as she has had this in the past. Chest pain is midsternal and constant. Nothing makes the pain better or worse. The pain is not radiating. She has no diaphoresis associated with this. Dry nonproductive cough. She is a smoker although states this cough is worse than her "smoker's cough". Complaining of generalized throat pain although is not having any difficulty with speech, swallowing, eating/drinking. Denies any abdominal pain, nausea, vomiting but has had loose stools. Patient denies any fever, chills, headache, change in vision, syncope or near syncope. Review of systems: As per history of present illness and below otherwise all systems reviewed and negative. Past medical history: As per history of present illness and as reviewed below otherwise noncontributory. Surgical history: As per history of present illness and as reviewed below otherwise noncontributory. Social history: See social history for further information Family history: As per history of present illness and as reviewed below otherwise noncontributory. Physical exam: General: Well developed and well nourished. Alert and orientated x 3. Nontoxic in appearance and in no acute distress. Vital signs are stable and have been reviewed by me. Nursing notes were reviewed. HEENT: Atraumatic, normocephalic, pupils equal and reactive bilaterally, negative for conjunctival pallor or scleral icterus, mucous membranes moist, TMs normal bilaterally, throat clear, neck supple, nontender, trachea midline. No drooling or trismus noted. No meningeal signs. No hot potato voice noted. Lungs: Slightly diminished throughout to auscultation, breath sounds equal bilaterally, chest nontender. Normal work of breathing, no accessory muscles used. Dry nonproductive cough noted. Heart: S1S2, regular rate and rhythm without overt murmur Abdomen: Soft, nondistended, nontender. Negative for masses or hepatosplenomegaly. Negative for costovertebral tenderness. Skin: Intact, warm, dry. No lesions or rashes noted. Hematologic: No petechiae or purpra. Mucosa appropriate color and normal nail bed color and refill. Extremities: Atraumatic, moves all extremities per self without difficulty or deficits, negative for cords or calf pain. Neurovascular unremarkable. Neuro: Awake, alert, oriented. Cranial nerves II through XII unremarkable. Cerebellum unremarkable. Motor and sensory unremarkable throughout. Exam nonfocal. Psychiatric: Mood and affect are appropriate. Normal thought process. Answering questions appropriately. Notes: Chest x-ray shows nothing acute. EKG shows a sinus rhythm with a right bundle branch block. It is noted in 2018 she also had a right bundle branch block. Has a history of SVT with ablation, has not had any problems since. Negative troponin. Patient's COVID screening is negative, although I am suspicious that she is positive. We do send out a swab to the state lab. I have spoken with the patient/caregiver and discussed today's findings, in addition to providing specific details for plan of care. Reassessment at the time of disposition demonstrates that the patient is in no acute distress. The patient has remained stable throughout the entire ED visit and is without objective evidence for acute process requiring urgent intervention or hospitalization. The patient is stable for discharge, counseling was provided and we discussed in great detail signs and symptoms that would prompt them to return to the Emergency Department. She does have a nebulizer machine at home, will give her some DuoNebs to use as needed. We will also treat her as an acute bronchitis with azithromycin and prednisone due to her smoking history. Medication, follow up and supportive care measures were reviewed and discussed. Voices understanding and is agreeable to plan of care. Denies any further questions or concerns at this time. Diagnostics: CBC, CMP, troponin, EKG, chest x-ray, COVID, lactate Therapeutics: Azithromycin, prednisone Prescription: Azithromycin, prednisone, DuoNeb (#15) Impression: Acute bronchitis Plan: 1. Even though your rapid COVID-19 screening is negative, I am suspicious that you have the COVID-19 virus. If you continue to feel unwell please stay home. COVID-19 testing is not 100% accurate, a state swab will be sent to lab for further analysis. 2. You can take NyQuil during the evening to help get a restful night sleep. 3. You may alternate Tylenol and ibuprofen as needed for pain and fever management. 4. The [facility] Hotline phone number , They are open Sunday - Sunday 7am - 7pm. 5. Follow up with your primary care provider for re-evaluation and if your symptoms should worsen, new symptoms develop or you feel like you are not improving you are always welcome to return to the emergency room. Definitive disposition and diagnosis as appropriate pending reevaluation and review of above. chest Pain Score (Numeric/FACES): 6 - Related Data Allergies Allergy/AdvReac Type Severity Reaction Status Date / Time latex Allergy Unknown Rash Verified 01/04/20 18:18 Home Meds: Home Meds metFORMIN [Glucophage XR] 1,000 mg PO BID 11/05/13 [History] glipiZIDE [Glucotrol XL] 10 mg PO BID 10/23/15 [History] Aspirin 81 mg PO BEDTIME 01/19/17 [History] Losartan [Cozaar] 1 tab PO BEDTIME 01/19/17 [History] Omeprazole Magnesium [Prilosec Otc] 20 mg PO DAILY 01/19/17 [History] atorvaSTATin [Lipitor] 40 mg PO BEDTIME 01/19/17 [History] Albuterol [Proair HFA] 2 puff INH Q4HR PRN 30 Days #1 inhaler 07/05/17 [Rx] Fluticasone/Salmeterol [Advair 250-50] 1 puff INH BID 30 Days #1 diskus 07/05/17 [Rx] Empagliflozin [Jardiance] 10 mg PO DAILY 09/08/18 [History] Albuterol/Ipratropium [DuoNeb 3.0-0.5 MG/3 ML] 1 ampule INH Q4HR PRN #15 neb 01/04/20 [Rx] Azithromycin [Zithromax] 1 dose PO DAILY 4 Days #4 tab 01/04/20 [Rx] predniSONE [Prednisone] 40 mg PO DAILY 3 Days #6 tablet 01/04/20 [Rx] Past Medical History HEENT History: Reports: None Cardiovascular History: Reports: High Cholesterol, Hypertension Respiratory History: Reports: None Gastrointestinal History: Reports: None Genitourinary History: Reports: None [employer] History: Reports: Musculoskeletal History: Reports: None Neurological History: Reports: None Psychiatric History: Reports: None Endocrine/Metabolic History: Reports: Diabetes, Type II Hematologic History: Reports: None Oncologic (Cancer) History: Reports: None Dermatologic History: Reports: Cellulitis - Infectious Disease History Infectious Disease History: Reports: Chicken Pox - Past Surgical History GI Surgical History: Reports: Cholecystectomy, Hernia Repair/Other Female Surgical History: Reports: Hysterectomy Musculoskeletal Surgical History: Reports: Other (See Below) Social & Family History - Family History Family Medical History: Noncontributory Cardiac: Reports: HI Neurological: Reports: CVA Endocrine/Metabolic: Reports: Diabetes, Type I, Diabetes, type II - Caffeine Use Caffeine Use: Reports: Tea ED ROS GENERAL - Review of Systems Review Of Systems: Comprehensive ROS is negative, except as noted in HPI. ED EXAM, GENERAL - Physical Exam Exam: See Below (See dictation) Course - Vital Signs Last Recorded V/S: Last Vital Signs Temp 97.2 F 01/04/20 18:09 Pulse 104 H 01/04/20 18:09 Resp 20 01/04/20 18:09 BP 189/79 H 01/04/20 18:09 Pulse Ox 93 L 01/04/20 18:09 - Orders/Labs/Meds Orders: Active Orders 24 hr Category Date Time Status Cardiac Monitoring [RC] . DIRECTED Care 01/04/20 18:30 Active EKG Documentation Completion [RC] STAT Care 01/04/20 18:21 Active CORONAVIRUS COVID-19 PCR PHL Stat Lab 01/04/20 19:00 Received CULTURE URINE [RM] Stat Lab 01/04/20 18:45 Received Sodium Chloride 0.9% [Saline Flush] Med 01/04/20 18:30 Active 10 ml FLUSH ASDIRECTED PRN Sodium Chloride 0.9% [Saline Flush] Med 01/04/20 18:30 Active 2.5 ml FLUSH ASDIRECTED PRN Saline Lock Insert [OM.PC] Stat Oth 01/04/20 18:30 Ordered Medication Orders Sodium Chloride (Saline Flush) 10 ml FLUSH ASDIRECTED PRN PRN Reason: Keep Vein Open Sodium Chloride (Saline Flush) 2.5 ml FLUSH ASDIRECTED PRN PRN Reason: Keep Vein Open Labs: Laboratory Tests 01/04/20 01/04/20 01/04/20 Range/Units 18:45 18:58 18:58 WBC 10.01 (4.0-11.0) K/uL RBC 4.63 (4.30-5.90) M/uL Hgb 10.5 L (12.0-16.0) g/dL Hct 34.4 L (36.0-46.0) % MCV 74.3 L (80.0-98.0) fL MCH 22.7 L (27.0-32.0) pg MCHC 30.5 L (31.0-37.0) g/dL RDW Std Deviation 45.8 (28.0-62.0) fl RDW Coeff of Becky 17 H (11.0-15.0) % Plt Count 310 (150-400) K/uL MPV 10.10 (7.40-12.00) fL Neut % (Auto) 67.4 (48.0-80.0) % Lymph % (Auto) 25.1 (16.0-40.0) % [place] % (Auto) 6.1 (0.0-15.0) % Eos % (Auto) 1.3 (0.0-7.0) % Baso % (Auto) 0.1 (0.0-1.5) % Neut # (Auto) 6.8 H (1.4-5.7) K/uL Lymph # (Auto) 2.5 H (0.6-2.4) K/uL [place] # (Auto) 0.6 (0.0-0.8) K/uL Eos # (Auto) 0.1 (0.0-0.7) K/uL Baso # (Auto) 0.0 (0.0-0.1) K/uL Nucleated RBC % 0.0 /100WBC Nucleated RBCs # 0 K/uL Lactate (0.20-2.00) mmol/L Sodium 139 (136-145) mmol/L Potassium 3.1 L (3.5-5.1) mmol/L Chloride 100 (98-107) mmol/L Carbon Dioxide 27.1 (21.0-32.0) mmol/L BUN 7 (7.0-18.0) mg/dL Creatinine 0.8 (0.6-1.0) mg/dL Est Cr Clr Drug Dosing 64.95 mL/min Estimated GFR (MDRD) > 60.0 ml/min Glucose 161 H (74-106) mg/dL Calcium 9.1 (8.5-10.1) mg/dL Total Bilirubin 0.3 (0.2-1.0) mg/dL AST 12 L (15-37) IU/L ALT 21 (14-63) IU/L Alkaline Phosphatase 119 H (46-116) U/L Troponin I < 0.050 (0.000-0.056) ng/mL Total Protein 7.7 (6.4-8.2) g/dL Albumin 3.6 (3.4-5.0) g/dL Globulin 4.1 H (2.6-4.0) g/dL Albumin/Globulin Ratio 0.9 (0.9-1.6) Urine Color YELLOW Urine Appearance SLT CLOUDY Urine pH 6.0 (5.0-8.0) Ur Specific [place] <= 1.005 (1.001-1.035) Urine Protein NEGATIVE (NEGATIVE) mg/dL Urine Glucose (UA) NEGATIVE (NEGATIVE) mg/dL Urine Ketones NEGATIVE (NEGATIVE) mg/dL Urine Occult Blood NEGATIVE (NEGATIVE) Urine Nitrite NEGATIVE (NEGATIVE) Urine Bilirubin NEGATIVE (NEGATIVE) Urine Urobilinogen 0.2 (<2.0) EU/dL Ur Leukocyte Esterase TRACE H (NEGATIVE) Urine RBC 0-1 (0-2/HPF) Urine WBC 1-3 (0-5/HPF) Ur Epithelial Cells MODERATE (NONE-FEW) Urine Bacteria RARE (NEGATIVE) Urine Yeast FEW SARS CoV-2 RNA Rapid CORNEL (NEGATIVE) 01/04/20 01/04/20 Range/Units 18:58 19:00 WBC (4.0-11.0) K/uL RBC (4.30-5.90) M/uL Hgb (12.0-16.0) g/dL Hct (36.0-46.0) % MCV (80.0-98.0) fL MCH (27.0-32.0) pg MCHC (31.0-37.0) g/dL RDW Std Deviation (28.0-62.0) fl RDW Coeff of Becky (11.0-15.0) % Plt Count (150-400) K/uL MPV (7.40-12.00) fL Neut % (Auto) (48.0-80.0) % Lymph % (Auto) (16.0-40.0) % [place] % (Auto) (0.0-15.0) % Eos % (Auto) (0.0-7.0) % Baso % (Auto) (0.0-1.5) % Neut # (Auto) (1.4-5.7) K/uL Lymph # (Auto) (0.6-2.4) K/uL [place] # (Auto) (0.0-0.8) K/uL Eos # (Auto) (0.0-0.7) K/uL Baso # (Auto) (0.0-0.1) K/uL Nucleated RBC % /100WBC Nucleated RBCs # K/uL Lactate 1.4 (0.20-2.00) mmol/L Sodium (136-145) mmol/L Potassium (3.5-5.1) mmol/L Chloride (98-107) mmol/L Carbon Dioxide (21.0-32.0) mmol/L BUN (7.0-18.0) mg/dL Creatinine (0.6-1.0) mg/dL Est Cr Clr Drug Dosing mL/min Estimated GFR (MDRD) ml/min Glucose (74-106) mg/dL Calcium (8.5-10.1) mg/dL Total Bilirubin (0.2-1.0) mg/dL AST (15-37) IU/L ALT (14-63) IU/L Alkaline Phosphatase (46-116) U/L Troponin I (0.000-0.056) ng/mL Total Protein (6.4-8.2) g/dL Albumin (3.4-5.0) g/dL Globulin (2.6-4.0) g/dL Albumin/Globulin Ratio (0.9-1.6) Urine Color Urine Appearance Urine pH (5.0-8.0) Ur Specific [place] (1.001-1.035) Urine Protein (NEGATIVE) mg/dL Urine Glucose (UA) (NEGATIVE) mg/dL Urine Ketones (NEGATIVE) mg/dL Urine Occult Blood (NEGATIVE) Urine Nitrite (NEGATIVE) Urine Bilirubin (NEGATIVE) Urine Urobilinogen (<2.0) EU/dL Ur Leukocyte Esterase (NEGATIVE) Urine RBC (0-2/HPF) Urine WBC (0-5/HPF) Ur Epithelial Cells (NONE-FEW) Urine Bacteria (NEGATIVE) Urine Yeast SARS CoV-2 RNA Rapid CORNEL NEGATIVE (NEGATIVE) Meds: Medications Generic Name Dose Route Start Last Admin Trade Name Freq PRN Reason Stop Dose Admin Sodium Chloride 10 ml 01/04/20 18:30 Saline Flush FLUSH ASDIRECTED PRN Keep Vein Open Sodium Chloride 2.5 ml 01/04/20 18:30 Saline Flush FLUSH ASDIRECTED PRN Keep Vein Open Discontinued Medications Generic Name Dose Route Start Last Admin Trade Name Freq PRN Reason Stop Dose Admin Azithromycin 500 mg 01/04/20 19:51 Zithromax PO 01/04/20 19:52 NOW STA Prednisone 40 mg 01/04/20 19:52 Prednisone PO 01/04/20 19:53 NOW STA Departure - Departure Time of Disposition: 20:11 Disposition: Home, Self-Care 01 Clinical Impression: Acute bronchitis Qualifiers: Bronchitis organism: unspecified organism Qualified Code(s): J20.9 - Acute bronchitis, unspecified - Discharge Information Prescriptions: Albuterol/Ipratropium [DuoNeb 3.0-0.5 MG/3 ML] 1 ampule INH Q4HR PRN #15 neb PRN Reason: Dyspnea predniSONE [Prednisone] 40 mg PO DAILY 3 Days #6 tablet Azithromycin [Zithromax] 1 dose PO DAILY 4 Days #4 tab Instructions: Acute Bronchitis, Adult, [id number] Referrals: Karthikeyan Cullen MD [Primary Care Provider] - Forms: ED Department Discharge Additional Instructions: The following information is given to patients seen in the emergency department who are being discharged to home. This information is to outline your options for follow-up care. We provide all patients seen in our emergency department with a follow-up referral. The need for follow-up, as well as the timing and circumstances, are variable depending upon the specifics of your emergency department visit. If you don't have a primary care physician on staff, we will provide you with a referral. We always advise you to contact your personal physician following an emergency department visit to inform them of the circumstance of the visit and for follow-up with them and/or the need for any referrals to a consulting specialist. The emergency department will also refer you to a specialist when appropriate. This referral assures that you have the opportunity for follow-up care with a specialist. All of these measure are taken in an effort to provide you with optimal care, which includes your follow-up. Under all circumstances we always encourage you to contact your private physician who remains a resource for coordinating your care. When calling for follow-up care, please make the office aware that this follow-up is from your recent emergency room visit. If for any reason you are refused follow-up, please contact the [facility] Emergency Department at and asked to speak to the emergency department charge nurse. [facility] [address] [place] [id number] [facility] [address] [place] [id number] Thank you for choosing the [facility] emergency department in [place] for your medical needs today. It was a pleasure caring for you. Today you were seen in the emergency department for respiratory symptoms. 1. Even though your rapid COVID-19 screening is negative, I am suspicious that you have the COVID-19 virus. If you continue to feel unwell please stay home. COVID-19 testing is not 100% accurate, a state swab will be sent to lab for further analysis. 2. You can take NyQuil during the evening to help get a restful night sleep. 3. You may alternate Tylenol and ibuprofen as needed for pain and fever management. 4. [facility] Hotline phone number , They are open Sunday - Sunday 7am - 7pm. 5. Follow up with your primary care provider for re-evaluation and if your symptoms should worsen, new symptoms develop or you feel like you are not improving you are always welcome to return to the emergency room. Sepsis Event Note (ED) - Focused Exam Vital Signs: Vital Signs Temp Pulse Resp BP Pulse Ox 01/04/20 18:09 97.2 F 104 H 20 189/79 H 93 L - My Orders Last 24 Hours: My Active Orders 01/04/20 18:21 EKG Documentation Completion [RC] STAT 01/04/20 18:30 Cardiac Monitoring [RC] . DIRECTED Sodium Chloride 0.9% [Saline Flush] 10 ml FLUSH ASDIRECTED PRN Sodium Chloride 0.9% [Saline Flush] 2.5 ml FLUSH ASDIRECTED PRN Saline Lock Insert [OM.PC] Stat 01/04/20 18:45 CULTURE URINE [RM] Stat 01/04/20 19:00 CORONAVIRUS COVID-19 PCR PHL Stat - Assessment/Plan Last 24 Hours: My Active Orders 01/04/20 18:21 EKG Documentation Completion [RC] STAT 01/04/20 18:30 Cardiac Monitoring [RC] . DIRECTED Sodium Chloride 0.9% [Saline Flush] 10 ml FLUSH ASDIRECTED PRN Sodium Chloride 0.9% [Saline Flush] 2.5 ml FLUSH ASDIRECTED PRN Saline Lock Insert [OM.PC] Stat 01/04/20 18:45 CULTURE URINE [RM] Stat 01/04/20 19:00 CORONAVIRUS COVID-19 PCR PHL Stat
[2020-01-04] MEDS ORDERED: Sodium Chloride 0.9% 10 ML Syringe FLUSH PRN (18:30)
[2020-01-04] MEDS ORDERED: Sodium Chloride 0.9% 2.5 ML Syringe FLUSH PRN (18:30)
--- NOTE | 2020-01-04 19:13 | CR ---
Chest: Portable view of the chest was obtained. Comparison: Prior chest x-ray of 07/10/17. Heart size and mediastinum are within normal limits. Lungs are clear with no acute parenchymal change. Bony structures are grossly intact. Impression: 1. Nothing acute is seen on portable chest x-ray. Diagnostic code #1 This report was dictated in MDT
[2020-01-04 19:40] LABS: BLOOD UREA NITROGEN,BUN 7 mg/dL (7.0-18.0); CARBON DIOXIDE,CO2 27.1 mmol/L (21.0-32.0); CHLORIDE,CL 100 mmol/L (98-107); GLUCOSE RANDOM 161 mg/dL (74-106); POTASSIUM,K 3.1 mmol/L (3.5-5.1); SODIUM,NA 139 mmol/L (136-145)
[2020-01-04] MEDS ORDERED: Azithromycin 250 MG Tab PO STA (19:51)
[2020-01-04] MEDS ORDERED: predniSONE 20 MG Tab PO STA (19:52)
[2020-01-04 20:24] VITALS: BP 155/75; PULSE 84
== END 2020-01-04 20:24 | disposition home or self-care (01) ==
LOC: MW.ED 18:02
DX: J20.9 Acute bronchitis, unspecified (principal); E78.00 Pure hypercholesterolemia, unspecified; I10 Essential (primary) hypertension; E11.9 Type 2 diabetes mellitus without complications; Z91.040 Latex allergy status; Z79.82 Long term (current) use of aspirin; Z79.899 Other long term (current) drug therapy; Z20.828 Contact with and (suspected) exposure to other viral communicable diseases
CPT/HCPCS: 36415; 71045; 80053; 81001; 83605; 84484; 85025; 87086; 87635; 99285; A9270; 99284; U0002

== ENCOUNTER 2021-05-24 16:20 | Inpatient (IN) | payer BC ==
[2021-05-24] MEDS ORDERED: Sodium Chloride 0.9% 1,000 ML IV ONE ×2 (16:44→18:14)
[2021-05-24] MEDS ORDERED: Ondansetron 4 MG/2 ML SDV IVPUSH ONE (16:44)
[2021-05-24 18:08] LABS: CARBON DIOXIDE,CO2 27.4 mmol/L (21.0-32.0); POTASSIUM,K 4.3 mmol/L (3.5-5.1)
[2021-05-24 18:13] LABS: CORONAVIRUS COVID-19 NAA NEGATIVE (NEGATIVE); INFLUENZA A NAA NEGATIVE (NEGATIVE); INFLUENZA B NAA NEGATIVE (NEGATIVE)
[2021-05-24] MEDS ORDERED: Piperacillin/Tazobactam 4.5 GM in Sodium Chloride 0.9% 100 ML IV ONE (18:13)
[2021-05-24] MEDS ORDERED: Sodium Chloride 0.9% 500 ML IV SCH (18:15)
[2021-05-24 18:30] LABS: LIPASE 263 U/L (73-393)
[2021-05-24] MEDS ORDERED: HYDROmorphone 1 MG/ML Syringe IVPUSH ONE (19:13)
[2021-05-24] MEDS: HYDROmorphone 1 MG/ML Syringe IVPUSH PRN (23:50)
[2021-05-25] MEDS ORDERED: Glucagon,Human Recombinant 1 MG Vial IM PRN (00:29)
[2021-05-25] MEDS ORDERED: 50% Dextrose in Water 50 ML Syringe IVPUSH PRN (00:29)
[2021-05-25] MEDS ORDERED: Heparin Sodium 5,000 Units/ML Vial SUBCUT SCH (00:30)
[2021-05-25] MEDS: Sodium Chloride 0.9% 1,000 ML IV SCH ×3 (01:12→21:24)
[2021-05-25 02:28] LABS: CARBON DIOXIDE,CO2 26.3 mmol/L (21.0-32.0); POTASSIUM,K 4.1 mmol/L (3.5-5.1)
[2021-05-25] MEDS ORDERED: Piperacillin/Tazobactam 3.375 GM in Sodium Chloride 0.9% 50 ML IV SCH (08:00)
[2021-05-25] MEDS: Insulin Aspart 100 Units/ML 3 ML Pen SUBCUT SCH ×2 (08:21→14:12)
[2021-05-25] MEDS: Heparin Sodium 5,000 Units/ML Vial SUBCUT SCH ×2 (08:24→21:06)
[2021-05-25] MEDS ORDERED: Magnesium Sulfate/Water 2 GM in Premix Bag 1 BAG IV ONE (09:02)
[2021-05-25] MEDS ORDERED: Albuterol 8 GM Inhaler INH PRN (10:35)
[2021-05-25] MEDS: HYDROmorphone 1 MG/ML Syringe IVPUSH PRN ×3 (10:38→21:15)
[2021-05-25] MEDS: Nicotine 14 MG/24 Hr Patch TRDERM SCH (14:16)
[2021-05-25] MEDS: Piperacillin/Tazobactam 4.5 GM in Sodium Chloride 0.9% 100 ML IV SCH ×2 (14:17→21:06)
[2021-05-25] MEDS ORDERED: Azithromycin 500 MG in Sodium Chloride 0.9% 250 ML IV SCH (14:30)
[2021-05-25] MEDS ORDERED: Ondansetron 4 MG/2 ML SDV IVPUSH PRN (14:54)
[2021-05-25] MEDS ORDERED: Acetaminophen 325 MG Tab PO PRN (14:54)
[2021-05-25] MEDS ORDERED: Piperacillin/Tazobactam 4.5 GM in Sodium Chloride 0.9% 100 ML IV SCH (16:00)
[2021-05-25] MEDS: atorvaSTATin 40 MG Tab PO SCH (21:05)
[2021-05-25] MEDS: INSULIN DEGLUDEC 100 UNIT/ML SUBCUT SCH (21:06)
[2021-05-26] MEDS: Piperacillin/Tazobactam 4.5 GM in Sodium Chloride 0.9% 100 ML IV SCH ×3 (05:54→21:37)
[2021-05-26] MEDS: Sodium Chloride 0.9% 1,000 ML IV SCH ×2 (05:55→15:31)
[2021-05-26] MEDS: Insulin Aspart 100 Units/ML 3 ML Pen SUBCUT SCH ×3 (07:20→17:36)
[2021-05-26 08:36] LABS: CARBON DIOXIDE,CO2 26.5 mmol/L (21.0-32.0); POTASSIUM,K 3.7 mmol/L (3.5-5.1)
[2021-05-26] MEDS: Heparin Sodium 5,000 Units/ML Vial SUBCUT SCH ×2 (09:46→21:36)
[2021-05-26] MEDS: Azithromycin 250 MG Tab PO SCH (09:47)
[2021-05-26] MEDS: Nicotine 14 MG/24 Hr Patch TRDERM SCH (09:47)
[2021-05-26] MEDS ORDERED: Polyethylene Glycol 3350 Powder 17 GM Packet PO PRN (10:41)
[2021-05-26] MEDS: HYDROmorphone 1 MG/ML Syringe IVPUSH PRN ×2 (13:59→22:50)
[2021-05-26] MEDS: INSULIN DEGLUDEC 100 UNIT/ML SUBCUT SCH (20:08)
[2021-05-26] MEDS: atorvaSTATin 40 MG Tab PO SCH (21:36)
[2021-05-27] MEDS: Piperacillin/Tazobactam 4.5 GM in Sodium Chloride 0.9% 100 ML IV SCH (05:43)
[2021-05-27 06:20] LABS: POTASSIUM,K 3.6 mmol/L (3.5-5.1)
[2021-05-27] MEDS ORDERED: Magnesium Sulfate/Water 2 GM in Premix Bag 1 BAG IV ONE (07:53)
[2021-05-27] MEDS: Insulin Aspart 100 Units/ML 3 ML Pen SUBCUT SCH ×2 (08:28→14:33)
[2021-05-27] MEDS: Azithromycin 250 MG Tab PO SCH (09:47)
[2021-05-27] MEDS: Heparin Sodium 5,000 Units/ML Vial SUBCUT SCH (09:47)
[2021-05-27] MEDS: Nicotine 14 MG/24 Hr Patch TRDERM SCH (09:47)
[2021-05-27] MEDS ORDERED: Levofloxacin 750 MG Tab PO ONE (11:15)
[2021-05-27 12:15] VITALS: PULSE 69
[2021-05-27 14:31] VITALS: BP 168/83
== END 2021-05-27 13:00 | disposition home or self-care (01) | DRG 720 ==
LOC: MW.ED 16:20 → MW.MS 21:11
PROVIDERS: ADMIT Internal Medicine; ATTEND Internal Medicine
DX: A41.59 Other Gram-negative sepsis (principal); J15.6 Pneumonia due to other Gram-negative bacteria; N17.9 Acute kidney failure, unspecified; R10.12 Left upper quadrant pain; E11.9 Type 2 diabetes mellitus without complications; I10 Essential (primary) hypertension; K74.60 Unspecified cirrhosis of liver; Z79.4 Long term (current) use of insulin; Z91.040 Latex allergy status; Z79.899 Other long term (current) drug therapy; E78.00 Pure hypercholesterolemia, unspecified; Z86.19 Personal history of other infectious and parasitic diseases; Z90.49 Acquired absence of other specified parts of digestive tract; Z98.890 Other specified postprocedural states; Z20.822 Contact with and (suspected) exposure to COVID-19; N12 Tubulo-interstitial nephritis, not specified as acute or chronic
CPT/HCPCS: 0240U; 36415; 71045; 71045-26; 71250; 71250-26; 74176; 74176-26; 80048; 80053; 81001; 81003; 82607; 82947; 83605; 83690; 83735; 84484; 85025; 85610; 86308; 87040; 87077; 87086; 87154; 87186; 87389; 87651-QW; 93010; 93306; 99283; 99285-25; A9270-GY; J0456; J1170; J1644; J1815-GY; J2405; J2543; J3475; J7030; J7040; J7050

== ENCOUNTER 2022-02-22 06:26 | Day surgery (SDC) | payer BC ==
[~2022-02-22 06:26] MED LIST: Lactated Ringers 1,000 ML IV SCH
[2022-02-22] MEDS ORDERED: fentaNYL 100 MCG/2 ML SDV ONE (07:26)
[2022-02-22] MEDS ORDERED: Midazolam 1 MG/ML 2 ML SDV ONE (07:26)
[2022-02-22] MEDS ORDERED: Bupivacaine 0.25% 30 ML SDV ONE (07:28)
[2022-02-22] MEDS ORDERED: Ropivacaine 0.5% 5 MG/ML 30 ML SDV ONE (07:28)
[2022-02-22] MEDS ORDERED: Ondansetron 4 MG/2 ML SDV IVPUSH PRN (07:33)
[2022-02-22] MEDS ORDERED: Morphine 2 MG/ML SYRINGE IVPUSH PRN (07:33)
[2022-02-22] MEDS ORDERED: Albuterol 0.083% 2.5 MG/3 ML Neb Soln NEB PRN (07:33)
[2022-02-22] MEDS ORDERED: Naloxone 0.4 MG/ML SDV IVPUSH PRN (07:33)
[2022-02-22] MEDS ORDERED: HYDROmorphone 1 MG/ML Syringe IVPUSH PRN (07:33)
[2022-02-22] MEDS ORDERED: fentaNYL 50 MCG/ML SDV IVPUSH PRN (07:33)
[2022-02-22] MEDS ORDERED: Metoclopramide 10 MG/2 ML SDV IVPUSH PRN (07:33)
[2022-02-22] MEDS ORDERED: Propofol 200 MG/20 ML SDV ONE (07:56)
[2022-02-22] MEDS ORDERED: ceFAZolin 2 GM Vial ONE (07:59)
[2022-02-22] MEDS ORDERED: Water For Injection, Sterile 20 ML ONE (07:59)
[2022-02-22] MEDS ORDERED: ceFAZolin 2 GM in Premix Bag 1 BAG IV SCH (08:00)
[2022-02-22] MEDS ORDERED: Lidocaine 2% 11 ML Jelly Filled Syringe ONE (08:26)
[2022-02-22 09:53] VITALS: BP 141/62; PULSE 64
== END 2022-02-22 09:45 | disposition home or self-care (01) ==
LOC: MW.SDS 06:26
PROVIDERS: ATTEND Orthopaedic Surgery
DX: G56.02 Carpal tunnel syndrome, left upper limb (principal); M65.4 Radial styloid tenosynovitis [de Quervain]; E11.9 Type 2 diabetes mellitus without complications; F17.210 Nicotine dependence, cigarettes, uncomplicated; I10 Essential (primary) hypertension; E78.5 Hyperlipidemia, unspecified; K21.9 Gastro-esophageal reflux disease without esophagitis; E66.9 Obesity, unspecified; F41.9 Anxiety disorder, unspecified; Z68.32 Body mass index [BMI] 32.0-32.9, adult; Z79.4 Long term (current) use of insulin; Z79.84 Long term (current) use of oral hypoglycemic drugs; Z79.899 Other long term (current) drug therapy; Z90.710 Acquired absence of both cervix and uterus; Z98.890 Other specified postprocedural states
CPT/HCPCS: 25000; 64721; A9270; J0131; J0690; J2250; J2704; J2795; J3010; J3490; J7120; 01810; 64450

== ENCOUNTER 2022-03-29 08:22 | Day surgery (SDC) | payer BC ==
[~2022-03-29 08:22] MED LIST changes: +ceFAZolin 2 GM in Premix Bag 1 BAG IV SCH
[2022-03-29] MEDS ORDERED: Albuterol 0.083% 2.5 MG/3 ML Neb Soln NEB PRN (08:23)
[2022-03-29] MEDS ORDERED: HYDROmorphone 1 MG/ML Syringe IVPUSH PRN (08:23)
[2022-03-29] MEDS ORDERED: Ondansetron 4 MG/2 ML SDV IVPUSH PRN (08:23)
[2022-03-29] MEDS ORDERED: Naloxone 0.4 MG/ML SDV IVPUSH PRN (08:23)
[2022-03-29] MEDS ORDERED: fentaNYL 50 MCG/ML SDV IVPUSH PRN (08:23)
[2022-03-29] MEDS ORDERED: Morphine 2 MG/ML SYRINGE IVPUSH PRN (08:23)
[2022-03-29] MEDS ORDERED: Metoclopramide 10 MG/2 ML SDV IVPUSH PRN (08:23)
[2022-03-29] MEDS ORDERED: Bupivacaine 0.5% 30 ML SDV ONE (09:07)
[2022-03-29] MEDS ORDERED: Ketamine 500 mg/10 ML MDV ONE (10:42)
[2022-03-29] MEDS ORDERED: Midazolam 1 MG/ML 2 ML SDV ONE (10:43)
[2022-03-29] MEDS ORDERED: Ondansetron 4 MG/2 ML SDV ONE (11:09)
[2022-03-29] MEDS ORDERED: Metoclopramide 10 MG/2 ML SDV ONE (11:09)
[2022-03-29] MEDS ORDERED: Bupivacaine 0.25% 30 ML SDV ONE (11:10)
[2022-03-29] MEDS ORDERED: Propofol 200 MG/20 ML SDV ONE (11:15)
[2022-03-29] MEDS ORDERED: Lidocaine 2% 5 ML SDV ONE (11:15)
[2022-03-29] MEDS ORDERED: ceFAZolin 1 GM Vial ONE (11:22)
[2022-03-29 15:11] VITALS: BP 95/55; PULSE 70
== END 2022-03-29 13:33 | disposition home or self-care (01) ==
LOC: MW.SDS 08:22
PROVIDERS: ATTEND Orthopaedic Surgery
DX: G56.01 Carpal tunnel syndrome, right upper limb (principal); M65.4 Radial styloid tenosynovitis [de Quervain]
CPT/HCPCS: 64721; 82947; J0690; J2250; J2405; J2704; J2765; J3010; J3490; J7120; 01810; 64450; 76942

== ENCOUNTER 2022-08-13 19:31 | Emergency (ER) | payer BC ==
[2022-08-13] MEDS ORDERED: Sodium Chloride 0.9% 10 ML Syringe FLUSH PRN (19:37)
[2022-08-13] MEDS ORDERED: Sodium Chloride 0.9% 2.5 ML Syringe FLUSH PRN (19:37)
[2022-08-13 19:50] LABS: COLOR,URINE YELLOW; GLUCOSE,URINE NEGATIVE (NEGATIVE); KETONES,URINE NEGATIVE (NEGATIVE); LEUKOCYTE ESTERASE,URINE TRACE (NEGATIVE); NITRITE,URINE NEGATIVE (NEGATIVE); OCCULT BLOOD,URINE NEGATIVE (NEGATIVE); PH,URINE 7.5 (5.0-8.0); PROTEIN,URINE TRACE mg/dL (NEGATIVE)
[2022-08-13 19:53] LABS: BASOPHILS PERCENT AUTO 0.1 % (0.0-1.5); EOSINOPHILS PERCENT AUTO 0.1 % (0.0-7.0); HEMATOCRIT 39.7 % (36.0-46.0); HEMOGLOBIN 14.1 g/dL (12.0-16.0); LYMPHOCYTES ABSOLUTE AUTO 0.6 K/uL (0.6-2.4); LYMPHOCYTES PERCENT AUTO 3.8 % (16.0-40.0); MEAN CORPUSCULAR HEMOGLOBIN 30.1 pg (27.0-32.0); MEAN CORPUSCULAR HGB CONC 35.5 g/dL (31.0-37.0); MEAN CORPUSCULAR VOLUME 84.6 fL (80.0-98.0); MONOCYTES ABSOLUTE AUTO 0.8 K/uL (0.0-0.8); MONOCYTES PERCENT AUTO 5.1 % (0.0-15.0); NEUTROPHILS ABSOLUTE AUTO 13.9 K/uL (1.4-5.7); NEUTROPHILS PERCENT AUTO 90.9 % (48.0-80.0); NRBC ABSOLUTE 0 K/uL; PLATELET COUNT,PLT 197 K/uL (150-400); RED BLOOD CELL COUNT 4.69 M/uL (4.30-5.90); WHITE BLOOD CELL COUNT,WBC 15.23 K/uL (4.0-11.0)
[2022-08-13 19:53] LABS: APPEARANCE,URINE HAZY; BILIRUBIN,URINE MODERATE (NEGATIVE)
[2022-08-13 19:59] LABS: BACTERIA,URINE FEW (NEGATIVE); EPITHELIAL CELLS,URINE FEW (NONE-FEW); RBC,URINE 0-1 (0-2/HPF); WBC,URINE 0-2 (0-5/HPF)
[2022-08-13] MEDS ORDERED: HYDROmorphone 1 MG/ML Syringe IVPUSH ONE (20:09)
[2022-08-13] MEDS ORDERED: Ondansetron 4 MG/2 ML SDV IVPUSH ONE (20:09)
[2022-08-13] MEDS ORDERED: Sodium Chloride 0.9% 1,000 ML IV ONE (20:09)
[2022-08-13 20:12] LABS: A/G RATIO 0.7 (0.9-1.6); ALBUMIN 3.2 g/dL (3.4-5.0); BILIRUBIN TOTAL 3.5 mg/dL (0.2-1.0); CALCIUM 9.7 mg/dL (8.5-10.1); CARBON DIOXIDE,CO2 25.8 mmol/L (21.0-32.0); CREATININE 1.3 mg/dL (0.6-1.0); EST CRCL DRUG DOSING (CG) 38.54 mL/min; PROTEIN TOTAL,TP 7.8 g/dL (6.4-8.2)
[2022-08-13] MEDS ORDERED: Albuterol/Ipratropium 3.0-0.5 MG/3 ML Neb Soln NEB STA (21:02)
[2022-08-13] MEDS ORDERED: Ketorolac 30 MG/ML SDV IVPUSH ONE (21:49)
[2022-08-13] MEDS ORDERED: fentaNYL 50 MCG/ML SDV IVPUSH ONE (22:29)
[2022-08-13 22:45] LABS: APPEARANCE,URINE SLT CLOUDY; GLUCOSE,URINE NEGATIVE (NEGATIVE); KETONES,URINE NEGATIVE (NEGATIVE); LEUKOCYTE ESTERASE,URINE TRACE (NEGATIVE); NITRITE,URINE POSITIVE (NEGATIVE); OCCULT BLOOD,URINE NEGATIVE (NEGATIVE); PH,URINE 5.5 (5.0-8.0); PROTEIN,URINE TRACE mg/dL (NEGATIVE)
[2022-08-13 22:48] LABS: BILIRUBIN,URINE MODERATE (NEGATIVE); COLOR,URINE AMBER
[2022-08-13 22:54] LABS: BACTERIA,URINE FEW (NEGATIVE); EPITHELIAL CELLS,URINE FEW (NONE-FEW); RBC,URINE 0-1 (0-2/HPF)
[2022-08-13] MEDS ORDERED: cefTRIAXone 1 GM in Sodium Chloride 0.9% 50 ML IV ONE (23:43)
[2022-08-14 00:31] VITALS: BP 100/46; PULSE 83
== END 2022-08-14 00:30 | disposition home or self-care (01) ==
LOC: MW.ED 19:31
DX: K74.60 Unspecified cirrhosis of liver (principal); D72.829 Elevated white blood cell count, unspecified; R17 Unspecified jaundice; E78.00 Pure hypercholesterolemia, unspecified; I10 Essential (primary) hypertension; K21.9 Gastro-esophageal reflux disease without esophagitis; E11.9 Type 2 diabetes mellitus without complications; J45.909 Unspecified asthma, uncomplicated; F17.210 Nicotine dependence, cigarettes, uncomplicated; E66.9 Obesity, unspecified; Z68.31 Body mass index [BMI] 31.0-31.9, adult; Z91.040 Latex allergy status; Z79.4 Long term (current) use of insulin; Z79.899 Other long term (current) drug therapy
CPT/HCPCS: 36415; 74176; 80053; 81001; 85025; 87086; 96361; 96374; 96375; 99284; J0696; J1170; J1885; J2405; J3010; J3490; J7030; 99285; J7620-GY

== ENCOUNTER 2023-12-28 16:41 | Emergency (ER) | payer BC ==
[2023-12-28] MEDS ORDERED: Naloxone 0.4 MG/ML SDV IVPUSH PRN (17:01)
[2023-12-28 17:07] LABS: APPEARANCE,URINE CLEAR; BILIRUBIN,URINE NEGATIVE (NEGATIVE); COLOR,URINE YELLOW; GLUCOSE,URINE NEGATIVE (NEGATIVE); KETONES,URINE NEGATIVE (NEGATIVE); LEUKOCYTE ESTERASE,URINE NEGATIVE (NEGATIVE); NITRITE,URINE NEGATIVE (NEGATIVE); OCCULT BLOOD,URINE NEGATIVE (NEGATIVE); PROTEIN,URINE NEGATIVE (NEGATIVE); UROBILINOGEN,URINE 0.2 EU/dL (<2.0)
[2023-12-28 17:14] LABS: BACTERIA,URINE NOT SEEN (NEGATIVE); EPITHELIAL CELLS,URINE NOT SEEN (NONE-FEW); RBC,URINE 0-1 (0-2/HPF); WBC,URINE 0-1 (0-5/HPF)
[2023-12-28] MEDS: Cetirizine 10 MG Tab PO ONE (17:25)
[2023-12-28] MEDS: Ondansetron 4 MG/2 ML SDV IVPUSH ONE (17:26)
[2023-12-28 17:28] LABS: BASOPHILS ABSOLUTE AUTO 0.01 K/uL (0.00-0.20); BASOPHILS PERCENT AUTO 0.1 % (0.0-1.0); EOSINOPHILS ABSOLUTE AUTO 0.17 K/uL (0.00-0.45); EOSINOPHILS PERCENT AUTO 2.1 % (0.0-6.0); HEMATOCRIT 39.9 % (37.0-47.0); HEMOGLOBIN 14.1 g/dL (12.0-16.0); IMMATURE GRAN ABSOLUTE AUTO 0.03 K/uL (0.00-0.05); IMMATURE GRAN PERCENT AUTO 0.4 % (0.0-0.4); LYMPHOCYTES ABSOLUTE AUTO 0.93 K/uL (1.00-4.80); LYMPHOCYTES PERCENT AUTO 11.5 % (24.0-44.0); MEAN CORPUSCULAR HEMOGLOBIN 29.9 pg (28.0-32.0); MEAN CORPUSCULAR HGB CONC 35.3 g/dL (32.0-36.0); MEAN CORPUSCULAR VOLUME 84.5 fL (83.0-99.0); MEAN PLATELET VOLUME 10.1 fL (9.4-12.3); MONOCYTES ABSOLUTE AUTO 0.45 K/uL (0.00-0.80); MONOCYTES PERCENT AUTO 5.6 % (0.0-8.0); NEUTROPHILS ABSOLUTE AUTO 6.47 K/uL (1.80-7.70); NEUTROPHILS PERCENT AUTO 80.3 % (41.0-71.0); PLATELET COUNT,PLT 205 K/uL (150-400); RED BLOOD CELL COUNT 4.72 M/uL (4.10-5.30); WHITE BLOOD CELL COUNT,WBC 8.06 K/uL (3.9-11.3)
[2023-12-28] MEDS: Sodium Chloride 0.9% 1,000 ML IV ONE (17:30)
[2023-12-28] MEDS: Sodium Chloride 0.9% 10 ML Syringe FLUSH PRN (17:33)
[2023-12-28] MEDS: Morphine 2 MG/ML SYRINGE IVPUSH ONE (17:35)
[2023-12-28 17:52] LABS: A/G RATIO 0.8 (0.9-1.6); ALBUMIN 3.5 g/dL (3.4-5.0); BILIRUBIN TOTAL 1.3 mg/dL (0.2-1.0); CALCIUM 9.8 mg/dL (8.5-10.1); CARBON DIOXIDE,CO2 28.4 mmol/L (21.0-32.0); CREATININE 0.9 mg/dL (0.6-1.0); EST CRCL DRUG DOSING (CG) 62.23 mL/min; POTASSIUM,K 3.8 mmol/L (3.5-5.1); PROTEIN TOTAL,TP 7.9 g/dL (6.4-8.2)
[2023-12-28 20:53] LABS: INR 1.04 (0.86-1.11)
[2023-12-28] MEDS ORDERED: droPERidol 1.25 MG in Sodium Chloride 0.9% 50 ML IV ONE (21:30)
[2023-12-28] MEDS: droPERidol 5 MG/2 ML SDV IVPUSH ONE (22:29)
[2023-12-28] MEDS: Sodium Chloride 0.9% 2.5 ML Syringe FLUSH PRN (22:30)
[2023-12-28] MEDS ORDERED: Nitroglycerin/D5W 25 MG/250 ML BOTTLE IV SCH (23:00)
[2023-12-28 23:40] LABS: A/G RATIO 0.8 (0.9-1.6); ALBUMIN 3.4 g/dL (3.4-5.0); BILIRUBIN DIRECT 0.6 mg/dL (0.0-0.5); BILIRUBIN INDIRECT 0.7; BILIRUBIN TOTAL 1.3 mg/dL (0.2-1.0); PROTEIN TOTAL,TP 7.9 g/dL (6.4-8.2)
[2023-12-29 00:22] VITALS: BP 114/50; PULSE 79
== END 2023-12-29 00:20 | disposition home or self-care (01) ==
LOC: MW.ED 16:41
DX: R10.11 Right upper quadrant pain (principal); R11.2 Nausea with vomiting, unspecified; R74.01 Elevation of levels of liver transaminase levels; I10 Essential (primary) hypertension; E78.00 Pure hypercholesterolemia, unspecified; E11.9 Type 2 diabetes mellitus without complications; E66.9 Obesity, unspecified; Z90.49 Acquired absence of other specified parts of digestive tract; Z98.890 Other specified postprocedural states; Z87.19 Personal history of other diseases of the digestive system; Z79.899 Other long term (current) drug therapy; Z79.84 Long term (current) use of oral hypoglycemic drugs; Z79.4 Long term (current) use of insulin; Z91.040 Latex allergy status; Z90.710 Acquired absence of both cervix and uterus; Z68.29 Body mass index [BMI] 29.0-29.9, adult
CPT/HCPCS: 36415; 74177; 76705; 80053; 80076; 81001; 83690; 85025; 85610; 96361; 96374; 96375; 99284; A9270; J1790; J2270; J2405; J3490; J7030

== ENCOUNTER 2024-03-30 12:54 | Inpatient (IN) | payer BC ==
[2024-03-30] MEDS: Albuterol/Ipratropium 3.0-0.5 MG/3 ML Neb Soln NEB ONE (13:26)
[2024-03-30] MEDS: Sodium Chloride 0.9% 1,000 ML IV ONE ×3 (13:26→22:49)
[2024-03-30 13:37] LABS: BASOPHILS ABSOLUTE AUTO 0.02 K/uL (0.00-0.20); BASOPHILS PERCENT AUTO 0.3 % (0.0-1.0); EOSINOPHILS ABSOLUTE AUTO 0.09 K/uL (0.00-0.45); EOSINOPHILS PERCENT AUTO 1.3 % (0.0-6.0); HEMATOCRIT 38.8 % (37.0-47.0); IMMATURE GRAN ABSOLUTE AUTO 0.02 K/uL (0.00-0.05); IMMATURE GRAN PERCENT AUTO 0.3 % (0.0-0.4); LYMPHOCYTES ABSOLUTE AUTO 1.58 K/uL (1.00-4.80); LYMPHOCYTES PERCENT AUTO 23.7 % (24.0-44.0); MEAN CORPUSCULAR HEMOGLOBIN 28.6 pg (28.0-32.0); MEAN CORPUSCULAR HGB CONC 33.5 g/dL (32.0-36.0); MEAN CORPUSCULAR VOLUME 85.5 fL (83.0-99.0); MEAN PLATELET VOLUME 10.9 fL (9.4-12.3); MONOCYTES ABSOLUTE AUTO 0.49 K/uL (0.00-0.80); MONOCYTES PERCENT AUTO 7.3 % (0.0-8.0); NEUTROPHILS ABSOLUTE AUTO 4.47 K/uL (1.80-7.70); NEUTROPHILS PERCENT AUTO 67.1 % (41.0-71.0); PLATELET COUNT,PLT 207 K/uL (150-400); RED BLOOD CELL COUNT 4.54 M/uL (4.10-5.30); WHITE BLOOD CELL COUNT,WBC 6.67 K/uL (3.9-11.3)
[2024-03-30] MEDS: Albuterol 0.083% 2.5 MG/3 ML Neb Soln NEB ONE (13:44)
[2024-03-30 14:03] LABS: A/G RATIO 0.7 (0.9-1.6); ALBUMIN 3.1 g/dL (3.4-5.0); BILIRUBIN TOTAL 0.4 mg/dL (0.2-1.0); CALCIUM 8.9 mg/dL (8.5-10.1); CARBON DIOXIDE,CO2 28.6 mmol/L (21.0-32.0); CREATININE 0.9 mg/dL (0.6-1.0); EST CRCL DRUG DOSING (CG) 54.99 mL/min; POTASSIUM,K 4.4 mmol/L (3.5-5.1); PROTEIN TOTAL,TP 7.6 g/dL (6.4-8.2)
[2024-03-30 14:06] LABS: LACTIC ACID 2.7 mmol/L (0.4-2.0)
[2024-03-30] MEDS: Ketorolac 30 MG/ML SDV IVPUSH ONE (14:42)
[2024-03-30 15:16] LABS: APPEARANCE,URINE CLEAR; BILIRUBIN,URINE NEGATIVE (NEGATIVE); COLOR,URINE YELLOW; GLUCOSE,URINE NEGATIVE (NEGATIVE); KETONES,URINE NEGATIVE (NEGATIVE); LEUKOCYTE ESTERASE,URINE NEGATIVE (NEGATIVE); NITRITE,URINE NEGATIVE (NEGATIVE); OCCULT BLOOD,URINE NEGATIVE (NEGATIVE); PH,URINE 5.5 (5.0-8.0); PROTEIN,URINE NEGATIVE (NEGATIVE); UROBILINOGEN,URINE 0.2 EU/dL (<2.0)
[2024-03-30] MEDS: methylPREDNISolone Sodium Succinate 125 MG/2 ML SDV IVPUSH ONE (17:10)
[2024-03-30] MEDS: traMADol 50 MG Tab PO ONE (17:10)
[2024-03-30] MEDS: Cefepime 2 GM in Sodium Chloride 0.9% 50 ML IV ONE (17:11)
[2024-03-30] MEDS: Iopamidol 755 Mg/ML 100 ML Bottle IVPUSH ONE (17:16)
[2024-03-30] MEDS ORDERED: Acetaminophen 650 MG Supp RECTAL PRN (17:43)
[2024-03-30] MEDS ORDERED: Polyethylene Glycol 3350 Powder 17 GM Packet PO PRN (17:43)
[2024-03-30] MEDS ORDERED: Ondansetron 4 MG/2 ML SDV IVPUSH PRN (17:43)
[2024-03-30] MEDS ORDERED: Albuterol 0.083% 2.5 MG/3 ML Neb Soln NEB PRN (17:43)
[2024-03-30] MEDS ORDERED: 50% Dextrose in Water 50 ML Syringe IVPUSH PRN (17:49)
[2024-03-30] MEDS ORDERED: Glucagon,Human Recombinant 1 MG Vial IM PRN (17:49)
[2024-03-30] MEDS ORDERED: Cefepime 2 GM in Sodium Chloride 0.9% 50 ML IV SCH (18:00)
[2024-03-30] MEDS: Azithromycin 500 MG in Sodium Chloride 0.9% 250 ML IV ONE (18:03)
[2024-03-30] MEDS: Pantoprazole 40 MG in Sodium Chloride 0.9% 10 ML IVPUSH SCH (18:14)
[2024-03-30] MEDS: Albuterol/Ipratropium 3.0-0.5 MG/3 ML Neb Soln NEB SCH (18:14)
[2024-03-30] MEDS: Insulin Aspart 100 Units/ML 3 ML Pen SUBCUT SCH (18:24)
[2024-03-30] MEDS: Sodium Chloride 0.9% 1,000 ML IV SCH (19:08)
[2024-03-30] MEDS ORDERED: Sodium Chloride 0.9% 1,000 ML IV SCH (20:00)
[2024-03-30] MEDS: Heparin Sodium 5,000 Units/ML Vial SUBCUT SCH (20:43)
[2024-03-30] MEDS: Melatonin 3 MG Tab PO PRN (21:12)
[2024-03-30] MEDS: Acetaminophen 325 MG Tab PO PRN (21:12)
[2024-03-31] MEDS: Cefepime 2 GM in Sodium Chloride 0.9% 50 ML IV SCH (00:03)
[2024-03-31 05:53] LABS: HEMATOCRIT 37.7 % (37.0-47.0); HEMOGLOBIN 12.6 g/dL (12.0-16.0); IMMATURE GRAN ABSOLUTE AUTO 0.04 K/uL (0.00-0.05); IMMATURE GRAN PERCENT AUTO 0.8 % (0.0-0.4); LYMPHOCYTES ABSOLUTE AUTO 0.61 K/uL (1.00-4.80); LYMPHOCYTES PERCENT AUTO 12.2 % (24.0-44.0); MEAN CORPUSCULAR HEMOGLOBIN 28.6 pg (28.0-32.0); MEAN CORPUSCULAR HGB CONC 33.4 g/dL (32.0-36.0); MEAN CORPUSCULAR VOLUME 85.5 fL (83.0-99.0); MEAN PLATELET VOLUME 10.7 fL (9.4-12.3); MONOCYTES ABSOLUTE AUTO 0.15 K/uL (0.00-0.80); NEUTROPHILS ABSOLUTE AUTO 4.18 K/uL (1.80-7.70); PLATELET COUNT,PLT 182 K/uL (150-400); RED BLOOD CELL COUNT 4.41 M/uL (4.10-5.30); WHITE BLOOD CELL COUNT,WBC 4.98 K/uL (3.9-11.3)
[2024-03-31 06:19] LABS: CALCIUM 8.9 mg/dL (8.5-10.1); CARBON DIOXIDE,CO2 28.3 mmol/L (21.0-32.0); CREATININE 0.8 mg/dL (0.6-1.0); EST CRCL DRUG DOSING (CG) 61.86 mL/min; MAGNESIUM 1.9 mg/dL (1.8-2.4); POTASSIUM,K 5.2 mmol/L (3.5-5.1)
[2024-03-31] MEDS: methylPREDNISolone Sodium Succinate 40 MG/1 ML SDV IVPUSH SCH (08:30)
[2024-03-31] MEDS: Azithromycin 500 MG in Sodium Chloride 0.9% 250 ML IV SCH (08:32)
[2024-03-31] MEDS ORDERED: traZODone 50 MG Tab PO PRN (09:53)
[2024-03-31] MEDS ORDERED: Albuterol 8 GM Inhaler INH PRN (12:36)
[2024-03-31] MEDS ORDERED: POTASSIUM GLUCONATE 500 MG PO SCH (12:45)
[2024-03-31] MEDS: Aspirin 81 MG Tab.Chew PO SCH (13:24)
[2024-03-31] MEDS: Gabapentin 100 MG Cap PO SCH (13:24)
[2024-03-31] MEDS: Clopidogrel 75 MG Tab PO SCH (13:24)
[2024-03-31] MEDS: amLODIPine 2.5 MG Tab PO SCH (13:24)
[2024-03-31] MEDS: Losartan 50 MG Tab PO SCH (13:25)
[2024-03-31 17:23] VITALS: BP 139/65; PULSE 79
[2024-03-31] MEDS ORDERED: Pravastatin 40 MG Tab PO SCH (21:00)
[2024-04-01] MEDS ORDERED: Pantoprazole 40 MG Tab.CR PO SCH (07:30)
[2024-04-02 05:02] LABS: BORDETELLA PARAPERT IS1001 Not Detected (Not Detected)
== END 2024-03-31 15:54 | disposition home or self-care (01) | DRG 139 ==
LOC: MW.ED 12:54 → MW.MS 16:43
PROVIDERS: ADMIT Family Medicine; ATTEND Family Medicine
DX: J18.9 Pneumonia, unspecified organism (principal); J96.01 Acute respiratory failure with hypoxia; J44.0 Chronic obstructive pulmonary disease with (acute) lower respiratory infection; E11.22 Type 2 diabetes mellitus with diabetic chronic kidney disease; E78.00 Pure hypercholesterolemia, unspecified; E66.9 Obesity, unspecified; K21.9 Gastro-esophageal reflux disease without esophagitis; I73.9 Peripheral vascular disease, unspecified; F17.210 Nicotine dependence, cigarettes, uncomplicated; N18.9 Chronic kidney disease, unspecified; I12.9 Hypertensive chronic kidney disease with stage 1 through stage 4 chronic kidney disease, or unspecified chronic kidney disease; Z68.33 Body mass index [BMI] 33.0-33.9, adult; Z87.442 Personal history of urinary calculi; Z85.820 Personal history of malignant melanoma of skin; Z98.49 Cataract extraction status, unspecified eye; Z90.710 Acquired absence of both cervix and uterus; Z91.040 Latex allergy status; Z79.51 Long term (current) use of inhaled steroids; Z79.4 Long term (current) use of insulin; Z79.84 Long term (current) use of oral hypoglycemic drugs; Z87.01 Personal history of pneumonia (recurrent); Z79.82 Long term (current) use of aspirin; Z79.899 Other long term (current) drug therapy; Z90.49 Acquired absence of other specified parts of digestive tract; Z98.890 Other specified postprocedural states
CPT/HCPCS: 36415; 71045; 71045-26; 71275; 71275-26; 80048; 80053; 81003; 82947; 83605; 83690; 83735; 85025; 85379; 87040; 87428-QW; 87486; 87581; 87633; 87899; 94640; 94667; 96361; 96374; 99285-25; A9270-GY; J0456; J0692; J1644; J1815-GY; J1885; J2470; J2919; J3490; J7030; J7050; J7620-GY; Q9967

== ENCOUNTER 2024-04-03 11:40 | Inpatient (IN) | payer BC ==
[2024-04-03] MEDS ORDERED: Sodium Chloride 0.9% 2.5 ML Syringe FLUSH PRN (12:10)
[2024-04-03] MEDS ORDERED: Sodium Chloride 0.9% 10 ML Syringe FLUSH PRN (12:10)
[2024-04-03] MEDS: Albuterol/Ipratropium 3.0-0.5 MG/3 ML Neb Soln NEB ONE ×3 (12:26→13:28)
[2024-04-03 12:37] LABS: BASOPHILS ABSOLUTE AUTO 0.03 K/uL (0.00-0.20); BASOPHILS PERCENT AUTO 0.2 % (0.0-1.0); EOSINOPHILS ABSOLUTE AUTO 0.05 K/uL (0.00-0.45); EOSINOPHILS PERCENT AUTO 0.3 % (0.0-6.0); HEMOGLOBIN 12.8 g/dL (12.0-16.0); IMMATURE GRAN ABSOLUTE AUTO 0.23 K/uL (0.00-0.05); IMMATURE GRAN PERCENT AUTO 1.5 % (0.0-0.4); LYMPHOCYTES ABSOLUTE AUTO 1.93 K/uL (1.00-4.80); LYMPHOCYTES PERCENT AUTO 12.3 % (24.0-44.0); MEAN CORPUSCULAR HEMOGLOBIN 28.4 pg (28.0-32.0); MEAN CORPUSCULAR HGB CONC 34.6 g/dL (32.0-36.0); MEAN CORPUSCULAR VOLUME 82.2 fL (83.0-99.0); MEAN PLATELET VOLUME 10.2 fL (9.4-12.3); MONOCYTES ABSOLUTE AUTO 0.63 K/uL (0.00-0.80); NEUTROPHILS ABSOLUTE AUTO 12.84 K/uL (1.80-7.70); NEUTROPHILS PERCENT AUTO 81.7 % (41.0-71.0); NRBC ABSOLUTE 0.02 K/uL (0.00-0.02); NRBC PERCENT 0.1 /100WBC (0.0-0.2); PLATELET COUNT,PLT 309 K/uL (150-400); WHITE BLOOD CELL COUNT,WBC 15.71 K/uL (3.9-11.3)
[2024-04-03 13:03] LABS: A/G RATIO 0.6 (0.9-1.6); ALANINE AMINOTRANSFERASE,ALT 22 IU/L (14-63); ALBUMIN 2.9 g/dL (3.4-5.0); ALKALINE PHOSPHATASE 83 U/L (46-116); ASPARTATE AMNIOTRANSFERASE,AST 24 IU/L (15-37); BILIRUBIN TOTAL 0.4 mg/dL (0.2-1.0); BLOOD UREA NITROGEN,BUN 16 mg/dL (7.0-18.0); CALCIUM 9.6 mg/dL (8.5-10.1); CARBON DIOXIDE,CO2 26.7 mmol/L (21.0-32.0); CHLORIDE,CL 98 mmol/L (98-107); CREATININE 0.8 mg/dL (0.6-1.0); EST CRCL DRUG DOSING (CG) 61.86 mL/min; GLUCOSE RANDOM 57 mg/dL (74-106); MAGNESIUM 1.7 mg/dL (1.8-2.4); POTASSIUM,K 3.5 mmol/L (3.5-5.1); PROTEIN TOTAL,TP 7.8 g/dL (6.4-8.2); SODIUM,NA 133 mmol/L (136-145)
[2024-04-03 13:05] LABS: ESTIMATED GFR 84 mL/min (>60)
[2024-04-03] MEDS ORDERED: Magnesium Sulfate (4.06 MEQ/ML) 5 GM/10 ML SDV IV ONE (13:09)
[2024-04-03] MEDS: cefTRIAXone 2 GM in Sodium Chloride 0.9% 50 ML IV ONE (14:00)
[2024-04-03] MEDS: Azithromycin 500 MG in Sodium Chloride 0.9% 250 ML IV ONE (14:02)
[2024-04-03] MEDS: Magnesium Sulfate/Water Premix 2 GM in Premix Bag 1 BAG IV ONE (14:14)
[2024-04-03] MEDS: Morphine 4 MG/ML Syringe IVPUSH ONE (14:17)
[2024-04-03 15:11] LABS: PH,VENOUS 7.42 (7.31-7.41)
[2024-04-03] MEDS ORDERED: Ondansetron 4 MG/2 ML SDV IVPUSH PRN (15:17)
[2024-04-03] MEDS ORDERED: Acetaminophen 650 MG Supp RECTAL PRN (15:17)
[2024-04-03] MEDS ORDERED: Melatonin 3 MG Tab PO PRN (15:17)
[2024-04-03] MEDS ORDERED: 50% Dextrose in Water 50 ML Syringe IVPUSH PRN (15:27)
[2024-04-03] MEDS ORDERED: Glucagon,Human Recombinant 1 MG Vial IM PRN (15:27)
[2024-04-03] MEDS ORDERED: VANCOmycin 1.5 GM in Sodium Chloride 0.9% 250 ML IV ONE (16:30)
[2024-04-03] MEDS: Insulin Aspart 100 Units/ML 3 ML Pen SUBCUT SCH (16:44)
[2024-04-03] MEDS: predniSONE 20 MG Tab PO ONE (16:56)
[2024-04-03] MEDS: Heparin Sodium 5,000 Units/ML Vial SUBCUT SCH (16:56)
[2024-04-03] MEDS: Pantoprazole 40 MG in Sodium Chloride 0.9% 10 ML IVPUSH SCH (16:57)
[2024-04-03] MEDS: Doxycycline 100 MG in Sodium Chloride 0.9% 100 ML IV SCH (17:00)
[2024-04-03] MEDS: Cefepime 2 GM in Sodium Chloride 0.9% 50 ML IV SCH (17:00)
[2024-04-03] MEDS: Albuterol/Ipratropium 3.0-0.5 MG/3 ML Neb Soln NEB SCH (17:14)
[2024-04-03] MEDS: guaiFENesin 600 MG Tab.ER PO SCH (17:23)
[2024-04-03] MEDS: Sodium Chloride 0.9% 1,000 ML IV SCH (18:01)
[2024-04-03] MEDS: Acetaminophen 325 MG Tab PO PRN (18:31)
[2024-04-03] MEDS: VANCOmycin 1.5 GM in Sodium Chloride 0.9% 250 ML IV ONE (18:34)
[2024-04-03] MEDS: Morphine 2 MG/ML SYRINGE IVPUSH PRN (20:44)
[2024-04-04] MEDS: Insulin Aspart 100 Units/ML 3 ML Pen SUBCUT STA ×2 (00:16→19:25)
[2024-04-04 06:47] LABS: BASOPHILS ABSOLUTE AUTO 0.01 K/uL (0.00-0.20); BASOPHILS PERCENT AUTO 0.1 % (0.0-1.0); EOSINOPHILS ABSOLUTE AUTO 0.01 K/uL (0.00-0.45); EOSINOPHILS PERCENT AUTO 0.1 % (0.0-6.0); HEMATOCRIT 35.6 % (37.0-47.0); HEMOGLOBIN 11.8 g/dL (12.0-16.0); IMMATURE GRAN ABSOLUTE AUTO 0.11 K/uL (0.00-0.05); LYMPHOCYTES ABSOLUTE AUTO 0.66 K/uL (1.00-4.80); LYMPHOCYTES PERCENT AUTO 6.1 % (24.0-44.0); MEAN CORPUSCULAR HEMOGLOBIN 28.1 pg (28.0-32.0); MEAN CORPUSCULAR HGB CONC 33.1 g/dL (32.0-36.0); MEAN CORPUSCULAR VOLUME 84.8 fL (83.0-99.0); MEAN PLATELET VOLUME 10.7 fL (9.4-12.3); MONOCYTES ABSOLUTE AUTO 0.38 K/uL (0.00-0.80); MONOCYTES PERCENT AUTO 3.5 % (0.0-8.0); NEUTROPHILS ABSOLUTE AUTO 9.71 K/uL (1.80-7.70); NEUTROPHILS PERCENT AUTO 89.2 % (41.0-71.0); PLATELET COUNT,PLT 261 K/uL (150-400); WHITE BLOOD CELL COUNT,WBC 10.88 K/uL (3.9-11.3)
[2024-04-04 07:06] LABS: CALCIUM 9.1 mg/dL (8.5-10.1); CARBON DIOXIDE,CO2 26.7 mmol/L (21.0-32.0); CREATININE 0.8 mg/dL (0.6-1.0); EST CRCL DRUG DOSING (CG) 61.86 mL/min; MAGNESIUM 2.1 mg/dL (1.8-2.4); POTASSIUM,K 4.7 mmol/L (3.5-5.1)
[2024-04-04] MEDS ORDERED: VANCOmycin 1 GM in Sodium Chloride 0.9% 250 ML IV SCH (07:30)
[2024-04-04] MEDS: predniSONE 20 MG Tab PO SCH (08:32)
[2024-04-04] MEDS: VANCOmycin 1 GM in Sodium Chloride 0.9% 250 ML IV SCH (08:34)
[2024-04-04] MEDS ORDERED: POTASSIUM GLUCONATE 500 MG PO SCH (10:15)
[2024-04-04] MEDS: Losartan 50 MG Tab PO SCH (10:46)
[2024-04-04] MEDS: Aspirin 81 MG Tab.Chew PO SCH (10:46)
[2024-04-04] MEDS: Gabapentin 100 MG Cap PO SCH (10:46)
[2024-04-04] MEDS: Clopidogrel 75 MG Tab PO SCH (10:46)
[2024-04-04] MEDS: Gabapentin 300 MG Cap PO SCH (10:47)
[2024-04-04] MEDS: amLODIPine 2.5 MG Tab PO SCH (10:47)
[2024-04-04] MEDS: Magnesium Sulfate/Water Premix 2 GM in Premix Bag 1 BAG IV ONE (10:58)
[2024-04-04] MEDS: Pravastatin 40 MG Tab PO SCH (21:38)
[2024-04-04] MEDS: Doxycycline 100 MG Cap PO SCH (21:38)
[2024-04-04] MEDS: Insulin Glargine,Hum.Rec.Anlog 100 UNIT/ML 3 ML Pen SUBCUT SCH (21:45)
[2024-04-05] MEDS: Nicotine 21 MG/24 Hr Patch TRDERM PRN (01:21)
[2024-04-05] MEDS: Albuterol/Ipratropium 3.0-0.5 MG/3 ML Neb Soln NEB ONE (06:00)
[2024-04-05 08:06] LABS: BASOPHILS ABSOLUTE AUTO 0.03 K/uL (0.00-0.20); BASOPHILS PERCENT AUTO 0.3 % (0.0-1.0); EOSINOPHILS ABSOLUTE AUTO 0.05 K/uL (0.00-0.45); EOSINOPHILS PERCENT AUTO 0.4 % (0.0-6.0); HEMATOCRIT 35.3 % (37.0-47.0); HEMOGLOBIN 11.7 g/dL (12.0-16.0); IMMATURE GRAN ABSOLUTE AUTO 0.16 K/uL (0.00-0.05); IMMATURE GRAN PERCENT AUTO 1.4 % (0.0-0.4); LYMPHOCYTES ABSOLUTE AUTO 1.19 K/uL (1.00-4.80); LYMPHOCYTES PERCENT AUTO 10.6 % (24.0-44.0); MEAN CORPUSCULAR HEMOGLOBIN 28.5 pg (28.0-32.0); MEAN CORPUSCULAR HGB CONC 33.1 g/dL (32.0-36.0); MEAN CORPUSCULAR VOLUME 86.1 fL (83.0-99.0); MEAN PLATELET VOLUME 10.2 fL (9.4-12.3); MONOCYTES ABSOLUTE AUTO 0.44 K/uL (0.00-0.80); MONOCYTES PERCENT AUTO 3.9 % (0.0-8.0); NEUTROPHILS ABSOLUTE AUTO 9.35 K/uL (1.80-7.70); NEUTROPHILS PERCENT AUTO 83.4 % (41.0-71.0); PLATELET COUNT,PLT 283 K/uL (150-400); WHITE BLOOD CELL COUNT,WBC 11.22 K/uL (3.9-11.3)
[2024-04-05] MEDS: Cefepime 2 GM Vial ONE (08:12)
[2024-04-05 08:17] LABS: CALCIUM 8.5 mg/dL (8.5-10.1); CARBON DIOXIDE,CO2 28.7 mmol/L (21.0-32.0); CREATININE 0.9 mg/dL (0.6-1.0); EST CRCL DRUG DOSING (CG) 54.99 mL/min; MAGNESIUM 1.8 mg/dL (1.8-2.4)
[2024-04-05 13:38] LABS: CORONAVIRUS COVID-19 NAA NEGATIVE (NEGATIVE); INFLUENZA A NAA NEGATIVE (NEGATIVE); INFLUENZA B NAA NEGATIVE (NEGATIVE)
[2024-04-05] MEDS: Insulin Aspart 100 Units/ML 3 ML Pen SUBCUT ONE (20:04)
[2024-04-05] MEDS: Insulin Glargine,Hum.Rec.Anlog 100 UNIT/ML 3 ML Pen SUBCUT SCH (21:07)
[2024-04-06 05:46] LABS: BASOPHILS ABSOLUTE AUTO 0.02 K/uL (0.00-0.20); BASOPHILS PERCENT AUTO 0.2 % (0.0-1.0); EOSINOPHILS PERCENT AUTO 0.9 % (0.0-6.0); HEMATOCRIT 33.4 % (37.0-47.0); HEMOGLOBIN 10.9 g/dL (12.0-16.0); IMMATURE GRAN PERCENT AUTO 0.9 % (0.0-0.4); LYMPHOCYTES ABSOLUTE AUTO 1.19 K/uL (1.00-4.80); LYMPHOCYTES PERCENT AUTO 10.5 % (24.0-44.0); MEAN CORPUSCULAR HEMOGLOBIN 28.1 pg (28.0-32.0); MEAN CORPUSCULAR HGB CONC 32.6 g/dL (32.0-36.0); MEAN CORPUSCULAR VOLUME 86.1 fL (83.0-99.0); MEAN PLATELET VOLUME 10.4 fL (9.4-12.3); MONOCYTES ABSOLUTE AUTO 0.62 K/uL (0.00-0.80); MONOCYTES PERCENT AUTO 5.5 % (0.0-8.0); NEUTROPHILS ABSOLUTE AUTO 9.34 K/uL (1.80-7.70); PLATELET COUNT,PLT 299 K/uL (150-400); RED BLOOD CELL COUNT 3.88 M/uL (4.10-5.30); WHITE BLOOD CELL COUNT,WBC 11.37 K/uL (3.9-11.3)
[2024-04-06 06:16] LABS: CALCIUM 9.1 mg/dL (8.5-10.1); CARBON DIOXIDE,CO2 28.7 mmol/L (21.0-32.0); CREATININE 0.9 mg/dL (0.6-1.0); EST CRCL DRUG DOSING (CG) 54.99 mL/min; MAGNESIUM 1.8 mg/dL (1.8-2.4); POTASSIUM,K 3.6 mmol/L (3.5-5.1)
[2024-04-06] MEDS: Insulin Aspart 100 Units/ML 3 ML Pen SUBCUT SCH ×2 (12:53→16:44)
[2024-04-06] MEDS: Furosemide 40 MG/4 ML VIAL IVPUSH ONE (14:09)
[2024-04-06 21:02] LABS: BORDETELLA PARAPERT IS1001 Not Detected (Not Detected)
[2024-04-06] MEDS: Oseltamivir 75 MG Cap PO SCH (23:07)
[2024-04-07] MEDS: Albuterol/Ipratropium 3.0-0.5 MG/3 ML Neb Soln NEB PRN (03:41)
[2024-04-07 06:18] LABS: BASOPHILS ABSOLUTE AUTO 0.01 K/uL (0.00-0.20); BASOPHILS PERCENT AUTO 0.1 % (0.0-1.0); EOSINOPHILS ABSOLUTE AUTO 0.15 K/uL (0.00-0.45); EOSINOPHILS PERCENT AUTO 1.6 % (0.0-6.0); HEMATOCRIT 33.8 % (37.0-47.0); IMMATURE GRAN ABSOLUTE AUTO 0.12 K/uL (0.00-0.05); IMMATURE GRAN PERCENT AUTO 1.3 % (0.0-0.4); LYMPHOCYTES ABSOLUTE AUTO 1.16 K/uL (1.00-4.80); LYMPHOCYTES PERCENT AUTO 12.5 % (24.0-44.0); MEAN CORPUSCULAR HEMOGLOBIN 27.8 pg (28.0-32.0); MEAN CORPUSCULAR HGB CONC 32.5 g/dL (32.0-36.0); MEAN CORPUSCULAR VOLUME 85.4 fL (83.0-99.0); MEAN PLATELET VOLUME 10.1 fL (9.4-12.3); MONOCYTES ABSOLUTE AUTO 0.47 K/uL (0.00-0.80); MONOCYTES PERCENT AUTO 5.1 % (0.0-8.0); NEUTROPHILS ABSOLUTE AUTO 7.37 K/uL (1.80-7.70); NEUTROPHILS PERCENT AUTO 79.4 % (41.0-71.0); PLATELET COUNT,PLT 308 K/uL (150-400); RED BLOOD CELL COUNT 3.96 M/uL (4.10-5.30); WHITE BLOOD CELL COUNT,WBC 9.28 K/uL (3.9-11.3)
[2024-04-07 06:40] LABS: CALCIUM 9.5 mg/dL (8.5-10.1); CARBON DIOXIDE,CO2 28.2 mmol/L (21.0-32.0); CREATININE 0.9 mg/dL (0.6-1.0); EST CRCL DRUG DOSING (CG) 54.99 mL/min; POTASSIUM,K 3.6 mmol/L (3.5-5.1)
[2024-04-07] MEDS: Heparin Sodium 5,000 Units/ML Vial SUBCUT SCH (08:06)
[2024-04-07] MEDS: Oseltamivir 30 MG Cap PO SCH (08:15)
[2024-04-07] MEDS: Benzonatate 100 MG Cap PO PRN (13:03)
[2024-04-08 06:20] LABS: BASOPHILS ABSOLUTE AUTO 0.03 K/uL (0.00-0.20); BASOPHILS PERCENT AUTO 0.3 % (0.0-1.0); EOSINOPHILS ABSOLUTE AUTO 0.32 K/uL (0.00-0.45); EOSINOPHILS PERCENT AUTO 3.4 % (0.0-6.0); HEMOGLOBIN 11.2 g/dL (12.0-16.0); IMMATURE GRAN ABSOLUTE AUTO 0.16 K/uL (0.00-0.05); IMMATURE GRAN PERCENT AUTO 1.7 % (0.0-0.4); LYMPHOCYTES ABSOLUTE AUTO 1.36 K/uL (1.00-4.80); LYMPHOCYTES PERCENT AUTO 14.5 % (24.0-44.0); MEAN CORPUSCULAR HEMOGLOBIN 27.5 pg (28.0-32.0); MEAN PLATELET VOLUME 10.2 fL (9.4-12.3); MONOCYTES ABSOLUTE AUTO 0.51 K/uL (0.00-0.80); MONOCYTES PERCENT AUTO 5.4 % (0.0-8.0); NEUTROPHILS ABSOLUTE AUTO 7.02 K/uL (1.80-7.70); NEUTROPHILS PERCENT AUTO 74.7 % (41.0-71.0); PLATELET COUNT,PLT 373 K/uL (150-400); RED BLOOD CELL COUNT 4.07 M/uL (4.10-5.30)
[2024-04-08 06:39] LABS: CALCIUM 8.9 mg/dL (8.5-10.1); CARBON DIOXIDE,CO2 29.1 mmol/L (21.0-32.0); CREATININE 0.8 mg/dL (0.6-1.0); EST CRCL DRUG DOSING (CG) 61.86 mL/min; MAGNESIUM 1.8 mg/dL (1.8-2.4); POTASSIUM,K 3.6 mmol/L (3.5-5.1)
[2024-04-08] MEDS: Pantoprazole 40 MG Tab.CR PO SCH (08:49)
[2024-04-08] MEDS: Ascorbic Acid 500 MG Tab PO SCH (11:09)
[2024-04-08] MEDS: Nystatin Susp 100,000 Unit/ML 5 ML UD Cup PO SCH (11:09)
[2024-04-08] MEDS: Polyethylene Glycol 3350 Powder 17 GM Packet PO PRN (16:06)
[2024-04-08] MEDS: Oseltamivir 75 MG Cap PO SCH (20:55)
[2024-04-09 06:34] LABS: BASOPHILS ABSOLUTE AUTO 0.02 K/uL (0.00-0.20); BASOPHILS PERCENT AUTO 0.2 % (0.0-1.0); EOSINOPHILS ABSOLUTE AUTO 0.28 K/uL (0.00-0.45); EOSINOPHILS PERCENT AUTO 2.9 % (0.0-6.0); HEMATOCRIT 34.4 % (37.0-47.0); HEMOGLOBIN 11.3 g/dL (12.0-16.0); IMMATURE GRAN ABSOLUTE AUTO 0.17 K/uL (0.00-0.05); IMMATURE GRAN PERCENT AUTO 1.8 % (0.0-0.4); LYMPHOCYTES ABSOLUTE AUTO 1.37 K/uL (1.00-4.80); LYMPHOCYTES PERCENT AUTO 14.4 % (24.0-44.0); MEAN CORPUSCULAR HEMOGLOBIN 28.3 pg (28.0-32.0); MEAN CORPUSCULAR HGB CONC 32.8 g/dL (32.0-36.0); MEAN PLATELET VOLUME 9.8 fL (9.4-12.3); MONOCYTES ABSOLUTE AUTO 0.49 K/uL (0.00-0.80); MONOCYTES PERCENT AUTO 5.1 % (0.0-8.0); NEUTROPHILS ABSOLUTE AUTO 7.21 K/uL (1.80-7.70); NEUTROPHILS PERCENT AUTO 75.6 % (41.0-71.0); PLATELET COUNT,PLT 353 K/uL (150-400); WHITE BLOOD CELL COUNT,WBC 9.54 K/uL (3.9-11.3)
[2024-04-09 06:58] LABS: CALCIUM 9.4 mg/dL (8.5-10.1); CARBON DIOXIDE,CO2 30.7 mmol/L (21.0-32.0); CREATININE 0.8 mg/dL (0.6-1.0); EST CRCL DRUG DOSING (CG) 61.86 mL/min; MAGNESIUM 1.9 mg/dL (1.8-2.4); POTASSIUM,K 3.7 mmol/L (3.5-5.1)
[2024-04-09] MEDS: Polyethylene Glycol 3350 Powder 17 GM Packet PO SCH (12:26)
[2024-04-09] MEDS: Sennosides 8.6 MG Tab PO SCH (12:26)
[2024-04-09] MEDS: oxyCODONE 5 MG Tab PO PRN (20:07)
[2024-04-09] MEDS: Amoxicillin/Clavulanate K 875-125 MG Tab PO SCH (20:08)
[2024-04-10 06:04] LABS: BASOPHILS ABSOLUTE AUTO 0.02 K/uL (0.00-0.20); BASOPHILS PERCENT AUTO 0.2 % (0.0-1.0); EOSINOPHILS ABSOLUTE AUTO 0.25 K/uL (0.00-0.45); EOSINOPHILS PERCENT AUTO 2.9 % (0.0-6.0); HEMOGLOBIN 10.7 g/dL (12.0-16.0); IMMATURE GRAN ABSOLUTE AUTO 0.15 K/uL (0.00-0.05); IMMATURE GRAN PERCENT AUTO 1.7 % (0.0-0.4); LYMPHOCYTES PERCENT AUTO 14.8 % (24.0-44.0); MEAN CORPUSCULAR HEMOGLOBIN 27.9 pg (28.0-32.0); MEAN CORPUSCULAR HGB CONC 32.4 g/dL (32.0-36.0); MEAN CORPUSCULAR VOLUME 85.9 fL (83.0-99.0); MEAN PLATELET VOLUME 9.9 fL (9.4-12.3); MONOCYTES ABSOLUTE AUTO 0.44 K/uL (0.00-0.80); NEUTROPHILS PERCENT AUTO 75.4 % (41.0-71.0); PLATELET COUNT,PLT 316 K/uL (150-400); RED BLOOD CELL COUNT 3.84 M/uL (4.10-5.30); WHITE BLOOD CELL COUNT,WBC 8.76 K/uL (3.9-11.3)
[2024-04-10 06:24] LABS: CALCIUM 9.1 mg/dL (8.5-10.1); CARBON DIOXIDE,CO2 32.5 mmol/L (21.0-32.0); CREATININE 0.8 mg/dL (0.6-1.0); EST CRCL DRUG DOSING (CG) 61.86 mL/min; MAGNESIUM 1.8 mg/dL (1.8-2.4); POTASSIUM,K 3.6 mmol/L (3.5-5.1)
[2024-04-10] MEDS: Polyethylene Glycol 3350 Powder 17 GM Packet PO SCH (10:02)
[2024-04-10] MEDS: Nystatin Crm 30 GM Tube TOP SCH (20:07)
[2024-04-11 05:49] LABS: BASOPHILS ABSOLUTE AUTO 0.02 K/uL (0.00-0.20); BASOPHILS PERCENT AUTO 0.3 % (0.0-1.0); EOSINOPHILS ABSOLUTE AUTO 0.27 K/uL (0.00-0.45); EOSINOPHILS PERCENT AUTO 3.5 % (0.0-6.0); HEMATOCRIT 32.4 % (37.0-47.0); HEMOGLOBIN 10.5 g/dL (12.0-16.0); IMMATURE GRAN PERCENT AUTO 1.3 % (0.0-0.4); MEAN CORPUSCULAR HEMOGLOBIN 27.9 pg (28.0-32.0); MEAN CORPUSCULAR HGB CONC 32.4 g/dL (32.0-36.0); MEAN CORPUSCULAR VOLUME 85.9 fL (83.0-99.0); MEAN PLATELET VOLUME 10.2 fL (9.4-12.3); MONOCYTES ABSOLUTE AUTO 0.55 K/uL (0.00-0.80); MONOCYTES PERCENT AUTO 7.1 % (0.0-8.0); NEUTROPHILS ABSOLUTE AUTO 5.43 K/uL (1.80-7.70); NEUTROPHILS PERCENT AUTO 69.8 % (41.0-71.0); PLATELET COUNT,PLT 321 K/uL (150-400); RED BLOOD CELL COUNT 3.77 M/uL (4.10-5.30); WHITE BLOOD CELL COUNT,WBC 7.77 K/uL (3.9-11.3)
[2024-04-11 06:12] LABS: CARBON DIOXIDE,CO2 31.8 mmol/L (21.0-32.0); CREATININE 0.8 mg/dL (0.6-1.0); EST CRCL DRUG DOSING (CG) 61.86 mL/min; MAGNESIUM 1.9 mg/dL (1.8-2.4); POTASSIUM,K 3.5 mmol/L (3.5-5.1)
[2024-04-11 08:01] VITALS: PULSE 93
[2024-04-11 09:14] VITALS: BP 142/65
== END 2024-04-11 13:30 | disposition home or self-care (01) | DRG 139 ==
LOC: MW.ED 11:40 → MW.MS 15:01 → OBSVTOIN 04-04 10:11 → MW.MS 04-04 17:20
PROVIDERS: ADMIT Family Medicine; ATTEND Family Medicine
DX: J18.9 Pneumonia, unspecified organism (principal); J96.01 Acute respiratory failure with hypoxia; J44.0 Chronic obstructive pulmonary disease with (acute) lower respiratory infection; J44.1 Chronic obstructive pulmonary disease with (acute) exacerbation; E78.00 Pure hypercholesterolemia, unspecified; I10 Essential (primary) hypertension; K21.9 Gastro-esophageal reflux disease without esophagitis; E11.9 Type 2 diabetes mellitus without complications; E66.9 Obesity, unspecified; F17.210 Nicotine dependence, cigarettes, uncomplicated; G89.29 Other chronic pain; M54.9 Dorsalgia, unspecified; Z71.6 Tobacco abuse counseling; K59.09 Other constipation; Z91.040 Latex allergy status; Z79.51 Long term (current) use of inhaled steroids; Z79.84 Long term (current) use of oral hypoglycemic drugs; Z79.82 Long term (current) use of aspirin; Z79.4 Long term (current) use of insulin; Z79.899 Other long term (current) drug therapy; Z79.02 Long term (current) use of antithrombotics/antiplatelets; Z87.01 Personal history of pneumonia (recurrent); Z87.442 Personal history of urinary calculi; Z85.820 Personal history of malignant melanoma of skin; Z98.49 Cataract extraction status, unspecified eye; Z98.890 Other specified postprocedural states; Z90.710 Acquired absence of both cervix and uterus; Z90.89 Acquired absence of other organs; Z68.31 Body mass index [BMI] 31.0-31.9, adult
CPT/HCPCS: 0240U; 36415; 71045; 71045-26; 71250; 71250-26; 71275; 71275-26; 80048; 80053; 80202; 82803; 82947; 83735; 83880; 84145; 84484; 85025; 85379; 87486; 87581; 87633; 87641; 93005; 93010; 94640; 94667; 94668; 96361; 96365; 96366; 96367; 96368; 96372; 96375; 96376; 99222; 99232; 99239; 99283; 99285-25; A9270-GY; G0378; J0456; J0692; J0696; J1644; J1815-GY; J1940; J2270; J2470; J3371; J3475; J3490; J7030; J7050; J7620-GY

== ENCOUNTER 2025-02-26 16:25 | Inpatient (IN) | payer BC ==
[2025-02-26] MEDS ORDERED: Sodium Chloride 0.9% 10 ML Syringe FLUSH PRN (16:56)
[2025-02-26] MEDS ORDERED: Sodium Chloride 0.9% 2.5 ML Syringe FLUSH PRN (16:56)
[2025-02-26 17:05] LABS: BASOPHILS ABSOLUTE AUTO 0.04 K/uL (0.00-0.20); BASOPHILS PERCENT AUTO 0.2 % (0.0-1.0); EOSINOPHILS ABSOLUTE AUTO 0.24 K/uL (0.00-0.45); EOSINOPHILS PERCENT AUTO 1.4 % (0.0-6.0); IMMATURE GRAN ABSOLUTE AUTO 0.10 K/uL (0.00-0.05); IMMATURE GRAN PERCENT AUTO 0.6 % (0.0-0.4); LYMPHOCYTES ABSOLUTE AUTO 1.58 K/uL (1.00-4.80); LYMPHOCYTES PERCENT AUTO 9.0 % (24.0-44.0); MEAN PLATELET VOLUME 10.2 fL (9.4-12.3); MONOCYTES ABSOLUTE AUTO 0.89 K/uL (0.00-0.80); MONOCYTES PERCENT AUTO 5.1 % (0.0-8.0); NEUTROPHILS ABSOLUTE AUTO 14.66 K/uL (1.80-7.70); NEUTROPHILS PERCENT AUTO 83.7 % (41.0-71.0); NRBC ABSOLUTE 0.00 K/uL (0.00-0.02); NRBC PERCENT 0.0 /100WBC (0.0-0.2); PLATELET COUNT,PLT 386 K/uL (150-400); RED BLOOD CELL COUNT 4.57 M/uL (4.10-5.30); WHITE BLOOD CELL COUNT,WBC 17.51 K/uL (3.9-11.3)
[2025-02-26 17:20] LABS: A/G RATIO 0.7 (0.9-1.6); ALANINE AMINOTRANSFERASE,ALT 20.0 IU/L (14-63); ASPARTATE AMNIOTRANSFERASE,AST 23.0 IU/L (15-37); BILIRUBIN TOTAL 0.6 mg/dL (0.2-1.0); BLOOD UREA NITROGEN,BUN 11.0 mg/dL (7.0-18.0); CARBON DIOXIDE,CO2 24.8 mmol/L (21.0-32.0); CHLORIDE,CL 92.0 mmol/L (98-107); CREATININE 0.9 mg/dL (0.6-1.0); EST CRCL DRUG DOSING (CG) 54.3 mL/min; GLUCOSE RANDOM 148.0 mg/dL (74-106); POTASSIUM,K 4.2 mmol/L (3.5-5.1); PROTEIN TOTAL,TP 8.5 g/dL (6.4-8.2); SODIUM,NA 130.0 mmol/L (136-145)
[2025-02-26 17:25] LABS: ESTIMATED GFR 73.0 mL/min (>60)
[2025-02-26] MEDS ORDERED: Naloxone 0.4 MG/ML SDV IVPUSH PRN (17:29)
[2025-02-26] MEDS: Ondansetron 4 MG/2 ML SDV IVPUSH ONE (17:35)
[2025-02-26] MEDS: cefTRIAXone 1 GM in Water For Injection, Sterile 10 ML IVPUSH ONE (17:37)
[2025-02-26] MEDS: Lactated Ringers 1,000 ML IV STA (17:37)
[2025-02-26 18:05] LABS: LACTIC ACID 1.5 mmol/L (0.4-2.0)
[2025-02-26] MEDS: Iopamidol 755 Mg/ML 100 ML Bottle IVPUSH ONE (18:49)
[2025-02-26] MEDS: methylPREDNISolone Sodium Succinate 125 MG/2 ML SDV IVPUSH ONE (19:27)
[2025-02-26] MEDS ORDERED: 50% Dextrose in Water 50 ML Syringe IVPUSH PRN (20:42)
[2025-02-27 07:54] LABS: BASOPHILS ABSOLUTE AUTO 0.01 K/uL (0.00-0.20); BASOPHILS PERCENT AUTO 0.1 % (0.0-1.0); EOSINOPHILS ABSOLUTE AUTO 0.00 K/uL (0.00-0.45); EOSINOPHILS PERCENT AUTO 0.0 % (0.0-6.0); IMMATURE GRAN ABSOLUTE AUTO 0.08 K/uL (0.00-0.05); IMMATURE GRAN PERCENT AUTO 0.7 % (0.0-0.4); LYMPHOCYTES ABSOLUTE AUTO 0.49 K/uL (1.00-4.80); LYMPHOCYTES PERCENT AUTO 4.4 % (24.0-44.0); MEAN PLATELET VOLUME 10.3 fL (9.4-12.3); MONOCYTES ABSOLUTE AUTO 0.25 K/uL (0.00-0.80); MONOCYTES PERCENT AUTO 2.2 % (0.0-8.0); NEUTROPHILS ABSOLUTE AUTO 10.43 K/uL (1.80-7.70); NEUTROPHILS PERCENT AUTO 92.6 % (41.0-71.0); NRBC ABSOLUTE 0.00 K/uL (0.00-0.02); NRBC PERCENT 0.0 /100WBC (0.0-0.2); PLATELET COUNT,PLT 342 K/uL (150-400); RED BLOOD CELL COUNT 4.32 M/uL (4.10-5.30); WHITE BLOOD CELL COUNT,WBC 11.26 K/uL (3.9-11.3)
[2025-02-27] MEDS ORDERED: Albuterol 0.083% 2.5 MG/3 ML Neb Soln NEB PRN (08:15)
[2025-02-27] MEDS ORDERED: 50% Dextrose in Water 50 ML Syringe IVPUSH PRN ×2 (08:18→10:45)
[2025-02-27 08:25] LABS: BLOOD UREA NITROGEN,BUN 18.0 mg/dL (7.0-18.0); CARBON DIOXIDE,CO2 26.6 mmol/L (21.0-32.0); CHLORIDE,CL 95.0 mmol/L (98-107); CREATININE 1.0 mg/dL (0.6-1.0); EST CRCL DRUG DOSING (CG) 48.87 mL/min; ESTIMATED GFR 64.0 mL/min (>60); GLUCOSE RANDOM 421.0 mg/dL (74-106); POTASSIUM,K 5.3 mmol/L (3.5-5.1); SODIUM,NA 129.0 mmol/L (136-145)
[2025-02-27] MEDS ORDERED: cefTRIAXone 1 GM in Water For Injection, Sterile 10 ML IVPUSH SCH ×2 (09:00→17:00)
[2025-02-27] MEDS: Insulin Glargine,Human Rec. Analog 100 Units/ML 3 ML Pen SUBCUT SCH (10:52)
[2025-02-27] MEDS: Insulin Glargine,Human Rec. Analog 100 Units/ML 3 ML Pen SUBCUT ONE (11:10)
[2025-02-27] MEDS: cefTRIAXone 1 GM in Water For Injection, Sterile 10 ML IVPUSH SCH (13:25)
[2025-02-27 14:46] VITALS: BP 156/53; PULSE 93
[2025-02-27] MEDS ORDERED: Insulin Glargine,Human Rec. Analog 100 Units/ML 3 ML Pen SUBCUT SCH (21:00)
== END 2025-02-27 14:51 | disposition home or self-care (01) | DRG 139 ==
LOC: MW.ED 16:25 → MW.MS 19:55
PROVIDERS: ADMIT Family Medicine; ATTEND Family Medicine
DX: J18.9 Pneumonia, unspecified organism (principal); E11.9 Type 2 diabetes mellitus without complications; R09.02 Hypoxemia; I10 Essential (primary) hypertension; K21.9 Gastro-esophageal reflux disease without esophagitis; E66.9 Obesity, unspecified; E78.00 Pure hypercholesterolemia, unspecified; Z79.82 Long term (current) use of aspirin; Z79.899 Other long term (current) drug therapy; Z79.2 Long term (current) use of antibiotics; Z79.84 Long term (current) use of oral hypoglycemic drugs; Z79.4 Long term (current) use of insulin; Z99.81 Dependence on supplemental oxygen; Z79.1 Long term (current) use of non-steroidal anti-inflammatories (NSAID); Z98.49 Cataract extraction status, unspecified eye; Z87.09 Personal history of other diseases of the respiratory system; Z68.33 Body mass index [BMI] 33.0-33.9, adult; Z85.820 Personal history of malignant melanoma of skin; Z90.49 Acquired absence of other specified parts of digestive tract; Z90.710 Acquired absence of both cervix and uterus; Z90.721 Acquired absence of ovaries, unilateral; Z72.0 Tobacco use
CPT/HCPCS: 36415; 71045; 71260; 71260-26; 80048; 80053; 82947; 83605; 83735; 84484; 85025; 87040; 93005; 99222; 99239; 99284; A9270-GY; J0456; J0696; J1815-GY; J2270; J2405; J2919; J7050; J7120; Q9967